=== PATIENT | male | born 1940 | race Caucasian/White ===

== ENCOUNTER 2017-04-23 12:43 | Emergency (ER) | payer MEDICARE, OTHER ==
--- NOTE | 2017-04-23 12:46 | EDM.PDOC ---
ED HPI GENERAL MEDICAL PROBLEM - General Chief Complaint: Chest Pain Stated Complaint: difficulty breathing. Time Seen by Provider: 04/23/17 12:45 Source of Information: Reports: Patient, Family (. ) History Limitations: Reports: No Limitations - History of Present Illness INITIAL COMMENTS - FREE TEXT/NARRATIVE: 76-year-old male attends the ED with his . He reports that he awoke around 0300 hrs. this morning from the easy chair where he sleeps more short of breath with a heaviness in his central chest. He does not wear CPAP machine or oxygen at night. He sleeps in the easy chair because of his severe bad back. He has known coronary disease having had 5 bypasses performed in 2004 or 2005. This was because he arrested on the operating room table prior to the start of her back surgery procedure. He was resuscitated and subsequent angiogram revealed extensive coronary disease and he ended up having open heart surgery instead. Subsequently he has had L-spine surgery by Dr. Shin. Patient states he felt his heart pounding hard in his chest at that time as well and it did not improve until after he took his morning medications about 7:30 this morning. Since then time he is developed fever with sweats and then chills to the point that his teeth were chattering. He has no sore throat he has no headache he has no cough or sputum production. [place] any genitourinary complaints or abdominal pain. No open sores anywhere on his skin that he is aware of. He is not diabetic. On evaluation here he is afebrile. Still remains mildly short of breath especially on minimal exertion. Onset: Today Onset Date: 04/23/17 Onset Time: 03:00 Duration: Hour(s): ( [place] sort racing for a good couple hours this morning.), Intermittent Location: Reports: Chest ( Central chest.) Quality: Reports: Pressure ( Did have a heaviness pressure central chest for a period of time and is now gone.) Severity: Moderate Improves with: Reports: Medication ( Improved after taking his normal morning medications of between 7:30 and 8:30 this morning.) Worsens with: Reports: Movement Context: Reports: Other ( Awoke from sleep in the easy chair around 0300 hrs.). Denies: Activity, Exercise, Lifting, Sick Contact, Trauma Associated Symptoms: Reports: Chest Pain, Diaphoresis ( palpitations), Fever/ Chills, Shortness of Breath, Other. Denies: Cough ( Chest heaviness), cough w sputum, Malaise Treatments FORENSIC SPECIALIST: Reports: Other (see below) ( only taken his normal medication so far today.) Lower Back Pain Score (Numeric/FACES): 7 - Related Data Allergies Allergy/AdvReac Type Severity Reaction Status Date / Time iodine Allergy Rash Verified 04/23/17 13:02 oxycodone HCl [From Percocet] Allergy Vomiting Verified 04/23/17 13:02 levoquin Allergy Diarrhea Uncoded 04/23/17 13:02 Home Meds: Home Meds Aspirin 325 mg PO DAILY 04/23/17 [History] Cholecalciferol (Vitamin D3) [Vitamin D3] 1 tab PO DAILY 04/23/17 [History] Escitalopram [Lexapro] 10 g PO BEDTIME 04/23/17 [History] Fenofibrate Nanocrystallized [Fenofibrate] 145 mg PO DAILY 04/23/17 [History] Furosemide [Lasix] 40 mg PO Q48H 04/23/17 [History] Levothyroxine 112 mcg PO DAILY 04/23/17 [History] Metoprolol Tartrate [Lopressor] 25 g PO BID 04/23/17 [History] Pantoprazole Sodium [Protonix] 40 mg PO DAILY 04/23/17 [History] Pregabalin [Lyrica] 150 mg PO BID 04/23/17 [History] Tamsulosin [Flomax] 0.4 mg PO BEDTIME 04/23/17 [History] Ubidecarenone [Co Q-10] 1 tab PO DAILY 04/23/17 [History] Past Medical History HEENT History: Reports: Impaired Vision Cardiovascular History: Reports: Bypass (Had 5 bypasses performed in 2004 or 2005 after cardiac arrest on operating room table in preparation for low back surgery at [facility] CAD, High Cholesterol, Hypertension Other Cardiovascular History: 5 vessels- 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 Gastrointestinal History: Reports: Chronic Diarrhea, GERD, Hemorrhoids Genitourinary History: Reports: Renal Calculus, Other (See Below) Other Genitourinary History: pt goes to nephology for poor kidney status Musculoskeletal History: Reports: Back Pain, Chronic Neurological History: Reports: None Psychiatric History: Reports: Depression - Past Surgical History Musculoskeletal Surgical History: Reports: Other (See Below) Social & Family History - Tobacco Use Smoking Status *Q: Never Smoker - Recreational Drug Use Recreational Drug Use: No - Living Situation & Occupation Living situation: Reports: ( Self-employed [employer].) Occupation: Employed ED ROS GENERAL - Review of Systems Review Of Systems: See Below Constitutional: Reports: Fever, Chills, Malaise, Weakness, Fatigue ( All starting to this morning.), Diaphoresis, Decreased Appetite HEENT: Reports: No Symptoms Respiratory: Reports: Shortness of Breath. Denies: Wheezing, Pleuritic Chest Pain, Cough, Sputum, Hemoptysis Cardiovascular: Reports: Chest Pain, Blood Pressure Problem, Dyspnea on Exertion ( always has a little bit of fluid in his lower extremities), Edema, Palpitations ( central chest heaviness earlier this morning it is now gone felt his heart was racing and beating very fast in his chest this morning.). Denies : Claudication, Lightheadedness, Orthopnea ( Usually runs a bit on the high side ) Endocrine: Reports: Fatigue GI/Abdominal: Reports: No Symptoms : Reports: Frequency, Other ( Nocturia usually nyway.) Musculoskeletal: Reports: Shoulder Pain ( Said previous rotator cuff repair on his left side.), Back Pain ( Chronic severe thoracic and lumbar back pain. Multiple surgeries on his back.), Joint Pain ( Arthritis knees and hips.) Skin: Reports: No Symptoms Neurological: Reports: No Symptoms Psychiatric: Reports: No Symptoms Hematologic/Lymphatic: Reports: No Symptoms Immunologic: Reports: No Symptoms ED EXAM, NEURO - Physical Exam Exam: See Below Exam Limited By: No Limitations General Appearance: Alert, WD/WN, Other ( In obvious pain when he tries to sit up in his back.) Eye Exam: Bilateral Eye: Normal Inspection Ears: Normal TMs Throat/Mouth: Normal Inspection, Normal Lips, Normal Oropharynx Head Exam: Atraumatic, Normocephalic, Other ( He has a very sore spot on the occipital vertex of his scalp but I could not palpate any deformities or masses. ) Neck: Limited Range of Motion ( Crepitus with lateral rotation.), Tender Lateral ( Bilaterally at). No: Lymphadenopathy (L) ( throughout the cervical spine.), Lymphadenopathy (R) Respiratory/Chest: No Respiratory Distress, Lungs Clear, Normal Breath Sounds, No Accessory Muscle Use, Chest Non-Tender. No: Crackles, Rales, Rhonchi Cardiovascular: Normal Peripheral Pulses, No JVD, No Rub, Irregularly Irregular ( There are multifocal PVCs.), Other ( Well-healed midline sternotomy incision.) GI/Abdominal: Normal Bowel Sounds, Soft, Non-Tender, No Organomegaly, Other ( Abdominal girth limits ability to palpate solid organs.) Neurological: Alert, Normal Mood/Affect, Normal Dorsiflexion, CN II-XII Intact, Oriented x 3, Difficulty Walking ( Due to his back pain.). No: Normal Gait Back Exam: Decreased Range of Motion, Vertebral Tenderness ( scars from previous surgeries. Particularly throughout the lumbar spine at the lumbosacral junction as well.), Other ( Multiple well-healed midlines) Extremities: Pedal Edema ( 1+ pitting edema both lower extremities.) Psychiatric: Normal Affect, Normal Mood Skin Exam: Warm, Dry, Intact, Normal Color, No Rash EKG INTERPRETATION EKG Date: 04/23/17 Time: 12:55 Rhythm: NSR Rate (Beats/Min): 63 [place]: Normal P-Wave: Present QRS: Other (Multiple multifocal PVCs) ST-T: Other (T-wave flattening in several leads nonspecific. T wave inversion 1 and aVL again nonspecific) QT: Prolonged Course - Vital Signs Last Recorded V/S: Last Vital Signs Temp 36.1 C 04/23/17 12:52 Pulse 57 L 04/23/17 12:52 Resp 16 04/23/17 12:52 BP 148/78 H 04/23/17 12:52 Pulse Ox 95 04/23/17 12:52 - Orders/Labs/Meds Orders: Active Orders 24 hr Category Date Time Status EKG 12 Lead [EKG Documentation Completion] [RC] STAT Care 04/23/17 12:59 Active Peripheral IV Care [RC] . DIRECTED Care 04/23/17 13:31 Active CALCIUM, IONIZED [REF] Stat Lab 04/23/17 15:15 Received CULTURE BLOOD [BC] Stat Lab 04/23/17 13:52 Received CULTURE BLOOD [BC] Stat Lab 04/23/17 14:05 Received URINALYSIS W/MICROSCOPIC [UA W/MICROSCOPIC] [URIN] Stat Lab 04/23/17 13:31 Uncollected Sodium Chloride 0.9% [Saline Flush] Med 04/23/17 13:30 Active 10 ml FLUSH ASDIRECTED PRN Blood Culture x2 Reflex Set [OM.PC] Stat Oth 04/23/17 13:31 Ordered Peripheral IV Insertion Adult [OM.PC] Stat Oth 04/23/17 13:30 Ordered Medication Orders Sodium Chloride (Saline Flush) 10 ml FLUSH ASDIRECTED PRN PRN Reason: Keep Vein Open Last Admin: 04/23/17 13:36 Dose: 10 ml Labs: Laboratory Tests 04/23/17 04/23/17 04/23/17 Range/Units 12:58 12:58 12:58 WBC 6.83 (4.23-9.07) K/mm3 RBC 5.17 (4.63-6.08) M/mm3 Hgb 14.9 (13.7-17.5) gm/L Hct 45.3 (40.1-51.0) % MCV 87.6 (79.0-92.2) fl MCH 28.8 (25.7-32.2) pg MCHC 32.9 (32.2-35.5) g/dl RDW Std Deviation 49.2 H (35.1-43.9) fL Plt Count 201 (163-337) K/mm3 MPV 11.1 (9.4-12.3) fl Neutrophils % (Manual) 55 (40-60) % Band Neutrophils % 0 (0-10) % Lymphocytes % (Manual) 39 (20-40) % Atypical Lymphs % 0 % Monocytes % (Manual) 4 (2-10) % Eosinophils % (Manual) 2 (0.8-7.0) % Basophils % (Manual) 0 L (0.2-1.2) Platelet Estimate Adequate RBC Morph Comment Normal PT 11.4 (8.0-13.0) SECONDS INR 1.04 Sodium 138 (136-145) mEq/L Potassium 4.4 (3.5-5.1) mEq/L Chloride 101 (98-107) mEq/L Carbon Dioxide 31 (21-32) mEq/L Anion Gap 10.4 (5-15) BUN 28 H (7-18) mg/dL Creatinine 1.7 H (0.7-1.3) mg/dL Est Cr Clr Drug Dosing 36.32 mL/min Estimated GFR (MDRD) 39 (>60) mL/min BUN/Creatinine Ratio 16.5 (14-18) Glucose 91 (83-115) mg/dL Calcium 10.5 H (8.5-10.1) mg/dL Magnesium 2.3 (1.8-2.4) mg/dl Total Bilirubin 0.5 (0.2-1.0) mg/dL AST 30 (15-37) U/L ALT 31 (16-63) U/L Alkaline Phosphatase 29 L (46-116) U/L CK-MB (CK-2) 1.8 (0-3.6) ng/ml Troponin I < 0.017 (0.00-0.056) ng/mL C-Reactive Protein < 0.2 (<1.0) mg/dL NT-Pro-B Natriuret Pep 317 (0-450) pg/mL Total Protein 7.7 (6.4-8.2) g/dl Albumin 4.4 (3.4-5.0) g/dl Globulin 3.3 gm/dL Albumin/Globulin Ratio 1.3 (1-2) Meds: Medications Generic Name Dose Route Start Last Admin Trade Name Freq PRN Reason Stop Dose Admin Sodium Chloride 10 ml 04/23/17 13:30 04/23/17 13:36 Saline Flush FLUSH 10 ml ASDIRECTED PRN Administration Keep Vein Open Discontinued Medications Generic Name Dose Route Start Last Admin Trade Name Freq PRN Reason Stop Dose Admin Furosemide 40 mg 04/23/17 13:37 04/23/17 14:04 Lasix IVPUSH 04/23/17 13:38 40 mg NOW ONE Administration - Radiology Interpretation Free Text/Narrative:: 36-year-old male presents to the ED with awakening at 3:00 this morning short of breath. He sits in the easy chair to sleep at night because of [place] such a bad back. He states he was aware that his heart was working harder racing in his chest until he took his morning medicines somewhere between 7:30 and 8:30 this morning. Subtle scoliosis heart rate seems to be back to normal although he has frequent multifocal PVCs on his ECG. [place] rate of rate is sinus at 64 per minute. he still felt a heaviness in his chest "somewhat better than it was. Then later this morning he developed significant chills wrist teeth were chattering and he still feels cold. He also broke out in a sweat suggesting development of a fever. He denies cough or sputum production. Note recent changes in his medications. No dysuria urgency. He has frequency due to BPH and taking Lasix at bedtime.. No skin sores were identified on exam. Benign abdominal exam. Therefore he will have septic workup completed serum magnesium will be checked suspect congestive heart failure although there are no acute rales in his lower lung angulo. He's had bad coronary disease having 5 bypasses performed in 2004 or . Does have dependent edema chronically. We'll have a peripheral IV lock started and given Lasix 40 mg IV. - Re-Assessments/Exams Free Text/Narrative Re-Assessment/Exam: 04/23/17 14:24chest x-ray done portably shows a bulbous heart i.e. mild to moderate cardiomegaly. There is a chronic infiltrate or prominence of pulmonary artery at the right medial heart border. He was noted on previous x-ray as well. There is an elevated right hemidiaphragm as well which is chronic. Visualized lung angulo appear clear. 04/23/17 14:59labs are back and reveal a normal white count at 6.83 with 55% neutrophils and no bands hemoglobin is 14.9 hematocrit is 45.3. Platelets are 201,000. Coags are normal sodium 138 potassium 4.4. Toward 101 bicarbonate 31. B1 was 28 creatinine is 1.7 EGFR is 39 night stage III chronic kidney disease serum calcium was slightly elevated at 10.5 with a albumin fraction of 4.4. And ionized calcium was ordered. It is a reference test BNP was slightly elevated 317 CRP is normal at less than 0.2. 04/23/17 15:29Patient reports to me that Dr. Thomas has given him a calcium shot , not sure what this involved. this may be why his serum calcium is elevated at this time. Patient has had previous goiter surgery and has never had problems with low calcium postoperatively. He is scheduled for bone scan towards the end of April and follow-up with Dr. Thomas his banquet lead. At this time no changes to medications were made. I did suggest that if he develops significant palpitations with a heart rate greater than 120 he is to take in extra dose of metoprolol at that time. Departure - Departure Time of Disposition: 15:09 Disposition: Home, Self-Care 01 Condition: Fair Clinical Impression: Intermittent palpitations - Discharge Information Instructions: Palpitations Referrals: Trinidad Gardner NP [Primary Care Provider] - Forms: ED Department Discharge Additional Instructions: evaluation in the emergency department today in regards to sudden onset of rapid heart rate which I suspect was irregularly irregular at 3:00 this morning associate with development of some pressure in the chest and some shortness of breath. History of previous coronary disease with 5 bypasses in 2004 or 2005. Chest x-ray shows the heart to be mildly enlarged but no fluid within the lower portions of the lungs were is appreciated. Lab work done and revealed the heart is still functioning very well with BNP of 317 which is the measures taken for how well the heart is functioning. The only thing that came back elevated slightly wish her calcium at 10.5 and apparently is utilizing medications to alter your calcium levels. Therefore at this time I would not change any of your medications. If you experience another bout of palpitations I would advise you to take an extra metoprolol tablet at that time. If symptoms continue after an hour and a half then you should return to the emergency department for further evaluation of irregular heartbeat. Otherwise no changes in medications are to be made at this time. - My Orders Last 24 Hours: My Active Orders 04/23/17 12:59 EKG 12 Lead [EKG Documentation Completion] [RC] STAT 04/23/17 13:30 Sodium Chloride 0.9% [Saline Flush] 10 ml FLUSH ASDIRECTED PRN Peripheral IV Insertion Adult [OM.PC] Stat 04/23/17 13:31 Peripheral IV Care [RC] . DIRECTED URINALYSIS W/MICROSCOPIC [UA W/MICROSCOPIC] [URIN] Stat Blood Culture x2 Reflex Set [OM.PC] Stat 04/23/17 13:52 CULTURE BLOOD [BC] Stat 04/23/17 14:05 CULTURE BLOOD [BC] Stat 04/23/17 15:15 CALCIUM, IONIZED [REF] Stat - Assessment/Plan Last 24 Hours: My Active Orders 04/23/17 12:59 EKG 12 Lead [EKG Documentation Completion] [RC] STAT 04/23/17 13:30 Sodium Chloride 0.9% [Saline Flush] 10 ml FLUSH ASDIRECTED PRN Peripheral IV Insertion Adult [OM.PC] Stat 04/23/17 13:31 Peripheral IV Care [RC] . DIRECTED URINALYSIS W/MICROSCOPIC [UA W/MICROSCOPIC] [URIN] Stat Blood Culture x2 Reflex Set [OM.PC] Stat 04/23/17 13:52 CULTURE BLOOD [BC] Stat 04/23/17 14:05 CULTURE BLOOD [BC] Stat 04/23/17 15:15 CALCIUM, IONIZED [REF] Stat
[2017-04-23] MEDS ORDERED: Sodium Chloride 0.9% 10 ML Syringe FLUSH PRN (13:30)
[2017-04-23] MEDS ORDERED: Furosemide 40 MG/4 ML VIAL IVPUSH ONE (13:37)
--- NOTE | 2017-04-23 14:09 | CR ---
Chest: Portable view of the chest was obtained. Comparison: Previous chest x-ray of 11/04/15. Heart size is within normal limits for portable technique. Tortuous thoracic aorta is seen. Previous sternotomy is noted. Lungs are clear. Bony structures are grossly intact. Impression: 1. Incidental findings. Nothing acute is appreciated. Diagnostic code #2
[2017-04-23 16:37] VITALS: BP 102/71
== END 2017-04-23 15:50 | disposition home or self-care (01) ==
LOC: JD.ED 12:43
DX: R00.2 Palpitations (principal); I10 Essential (primary) hypertension; I25.10 Atherosclerotic heart disease of native coronary artery without angina pectoris; E78.00 Pure hypercholesterolemia, unspecified; K21.9 Gastro-esophageal reflux disease without esophagitis; F32.9 Major depressive disorder, single episode, unspecified; Z87.442 Personal history of urinary calculi; Z95.1 Presence of aortocoronary bypass graft; Z79.82 Long term (current) use of aspirin; Z79.899 Other long term (current) drug therapy; Z88.6 Allergy status to analgesic agent; Z88.8 Allergy status to other drugs, medicaments and biological substances
CPT/HCPCS: 36415; 71010; 80053; 81001; 82330; 82553; 83735; 83880; 84484; 85025; 85610; 86140; 87040; 87086; 87088; 87186; 93005; 96374; 99285; J1940; J7050; 99284

== ENCOUNTER 2018-05-11 08:53 | Inpatient (IN) | payer MEDICARE, OTHER ==
[~2018-05-11 08:53] MED LIST: Lactated Ringers 1,000 ML IV SCH; Lidocaine 1%/Sod Bicarbonate in NS 8.4% 1 ML Syringe IDERM PRN; Sodium Chloride 0.9% 10 ML Syringe FLUSH PRN
[2018-05-11] MEDS ORDERED: ceFAZolin 1 GM Vial ONE ×2 (09:12→09:23)
[2018-05-11] MEDS ORDERED: Vancomycin 1 GM SDV ONE (09:12)
[2018-05-11] MEDS ORDERED: Bupivacaine 0.25% 30 ML SDV ONE (09:12)
[2018-05-11] MEDS ORDERED: fentaNYL 100 MCG/2 ML SDV ONE ×2 (09:15→12:52)
[2018-05-11] MEDS ORDERED: Lactated Ringers 2,000 ML ONE (09:16)
[2018-05-11] MEDS ORDERED: Propofol 200 MG/20 ML SDV ONE (09:16)
[2018-05-11] MEDS ORDERED: Ondansetron 4 MG/2 ML SDV ONE (09:16)
[2018-05-11] MEDS ORDERED: Ketamine 500 mg/10 ML MDV ONE (09:17)
[2018-05-11] MEDS ORDERED: Midazolam 1 MG/ML 2 ML SDV ONE (09:17)
[2018-05-11] MEDS ORDERED: Lidocaine 1% 4 ML ONE (09:22)
[2018-05-11] MEDS ORDERED: Lanolin/Mineral Oil/Petrolatum Ophth Oint 3.5 GM Tube ONE (09:33)
[2018-05-11] MEDS ORDERED: HYDROmorphone 0.5 MG/0.5 ML Syringe IVPUSH PRN ×2 (09:48→13:40)
[2018-05-11] MEDS ORDERED: Famotidine 20 MG/2 ML SDV ONE (10:43)
[2018-05-11] MEDS ORDERED: Scopolamine 1.5 MG Transdermal Patch TOP ONE (10:45)
[2018-05-11] MEDS ORDERED: Ropivacaine 0.5% 5 MG/ML 30 ML SDV ONE (10:47)
[2018-05-11] MEDS ORDERED: EPINEPHrine 1 MG/ML SDV ONE (10:48)
[2018-05-11] MEDS ORDERED: EPINEPHrine 0.3 MG, Cefuroxime 750 MG, Ketorolac 30 MG, Sodium Chloride 0.9% 28.7 ML ONE ×4 (11:00)
[2018-05-11] MEDS ORDERED: HYDROmorphone 0.5 MG/0.5 ML Syringe ONE (11:17)
[2018-05-11] MEDS ORDERED: Sodium Chloride 0.9% 100 ML ONE (11:38)
[2018-05-11] MEDS ORDERED: Phenylephrine 1% 10 MG/ML SDV ONE (11:38)
[2018-05-11] MEDS ORDERED: Dexamethasone 4 MG/ML SDV ONE (11:43)
[2018-05-11] MEDS ORDERED: Lidocaine 1% 2 ML ONE (11:56)
[2018-05-11] MEDS ORDERED: ePHEDrine/Normal Saline 25 MG/5 ML Syringe ONE (12:05)
[2018-05-11] MEDS ORDERED: Phenylephrine/Normal Saline 100 MCG/ML 10 ML Syringe ONE (12:05)
[2018-05-11] MEDS ORDERED: Neostigmine Methylsulfate 1 MG/ML 5 ML Syringe ONE (13:20)
--- NOTE | 2018-05-11 13:26 | PCM.SN ---
- Free Text/Narrative Note: Right selective femoral nerve block at the adductor canal for post-procedure pain control under US guidance requested by Dr. Iniguez. Time Out: 1306 Start:1308 End: 1312 Chart reviewed. Consent signed. Questions answered. Appropriate monitors applied. Time out performed. Right mid-shaft femur identified with ultrasound, scanning medially of femur, the femoral artery in the adductor canal visualized , and the femoral nerve located laterally to the artery. The skin was prepped lateral to the ultrasound probe with chlorahexadine times two. The 21ga 4 insulated block needle was inserted under direct ultrasound guidance into the adductor canal. 25mL of 0.5% ropivacaine with 1:200,000 epinephrine was injected circumferentially around the nerve with intermittent negative aspiration noted. Patient tolerated the procedure well. Sterile technique noted along with sterile gloves, mask, and sterile probe cover. See picture on progress note and vital signs on nurses notes. Block completed in OR room as patient had a general anesthesia. Completed prior to wake up. Assisted by Dr. Camryn Diaz CRNA
[2018-05-11] MEDS ORDERED: Nitroglycerin 0.4 MG Tab.SL SL PRN (13:36)
[2018-05-11] MEDS ORDERED: fentaNYL 100 MCG/2 ML SDV IVPUSH PRN (13:40)
[2018-05-11] MEDS ORDERED: diphenhydrAMINE 50 MG/ML SDV IVPUSH PRN (13:40)
[2018-05-11] MEDS ORDERED: Ondansetron 4 MG/2 ML SDV IVPUSH PRN ×2 (13:40→13:43)
--- NOTE | 2018-05-11 13:42 | PCM.POSTAN ---
POST ANESTHESIA ASSESSMENT - MENTAL STATUS Mental Status: Alert, Oriented - VITAL SIGNS Pulse Rate: 75 SaO2: 96 Resp Rate: 22 Blood Pressure: 112/72 Temperature: 37.3 C - RESPIRATORY Respiratory Status: Respiratory Rate WNL, Airway Patent, O2 Saturation Stable, Supplemental Oxygen - CARDIOVASCULAR CV Status: Pulse Rate WNL, Blood Pressure Stable - GASTROINTESTINAL GI Status: No Symptoms - PAIN Pain Score: 0 - POST OP HYDRATION Hydration Status: Adequate & Stable
[2018-05-11] MEDS ORDERED: Bisacodyl 5 MG Tab PO PRN (13:43)
[2018-05-11] MEDS ORDERED: Naloxone 0.4 MG/ML SDV IVPUSH PRN ×2 (13:43→13:57)
[2018-05-11] MEDS ORDERED: Magnesium Hydroxide 400 MG/5 ML Susp 30 ML Cup PO PRN (13:43)
[2018-05-11] MEDS ORDERED: Sennosides 8.6 MG Tab PO PRN (13:43)
[2018-05-11] MEDS ORDERED: Denosumab 60 MG/1 ML Syringe SCH (13:45)
--- NOTE | 2018-05-11 13:51 | PCM.PREANE ---
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 ) Other: Reports: Thyroid Problems, Depression - Physical Assessment NPO Status Date: 05/10/18 NPO Status Time: 19:00 Pulse: 75 O2 Sat by Pulse Oximetry: 96 Respiratory Rate: 22 Blood Pressure: 112/72 Temperature: 37.3 C Vital Signs: Last Vital Signs Temp 37.3 C 05/11/18 13:42 Pulse 75 05/11/18 13:42 Resp 22 H 05/11/18 13:42 BP 112/72 05/11/18 13:42 Pulse Ox 96 05/11/18 13:42 Height: 1.73 m Weight: 102.058 kg ASA Class: 3 Mental Status: Alert & Oriented x3 Airway Class: Mallampati = 2 Dentition: Reports: Normal Dentition Thyro-Mental Finger Breadths: 3 Mouth Opening Finger Breadths: 3 ROM/Head Extension: Full Lungs: Clear to Auscultation, Normal Respiratory Effort Cardiovascular: Regular Rate, Regular Rhythm - Lab Values: Laboratory Last Values MRSA (PCR) Negative 04/24/18 12:07 - Allergies Allergies/Adverse Reactions: Allergies Allergy/AdvReac Type Severity Reaction Status Date / Time iodine Allergy Rash Verified 05/08/18 10:38 morphine Allergy Hives Verified 05/08/18 10:38 ciprofloxacin [From Cipro] AdvReac Nausea and Verified 05/11/18 07:04 Vomiting levofloxacin AdvReac Diarrhea Verified 05/08/18 10:38 oxycodone HCl [From Percocet] AdvReac Vomiting Verified 05/08/18 10:38 - Anesthesia Plan Beta Ila: Metoprolol Med Last Dose Date: 05/11/18 Med Last Dose Time: 06:00 - Acknowledgements Anesthesia Type Planned: General Anesthesia Pt an Appropriate Candidate for the Planned Anesthesia: Yes Alternatives and Risks of Anesthesia Discussed w Pt/Guardian: Yes Pt/Guardian Understands and Agrees with Anesthesia Plan: Yes PreAnesthesia Questionnaire HEENT History: Reports: Cataract, Impaired Vision Cardiovascular History: Reports: Bypass, CAD, High Cholesterol, Hypertension, [place] Other Cardiovascular History: 5 vessels- 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 Respiratory History: Reports: None Gastrointestinal History: Reports: Chronic Diarrhea, Diverticulosis, Gastritis, GERD, Hemorrhoids, Hiatal Hernia, Other (See Below) Other Gastrointestinal History: barretts, gastritis Genitourinary History: Reports: Renal Calculus, Other (See Below) Other Genitourinary History: UTI, prostatitis, renal calculus, hematuria, CKD III, urinary retention, acute kidney injury 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 Musculoskeletal History: Reports: Back Pain, Chronic, Gout, Osteoarthritis Neurological History: Reports: None, Migraines Psychiatric History: Reports: Depression Endocrine/Metabolic History: Reports: Hypothyroidism, Obesity/BMI 30+, Osteopenia, Vitamin D Deficiency Hematologic History: Reports: None Immunologic History: Reports: None Oncologic (Cancer) History: Reports: None Dermatologic History: Reports: Other (See Below) Other Dermatologic History: rash, lipoma - Past Surgical History Head Surgeries/Procedures: Reports: None HEENT Surgical History: Reports: Cataract Surgery, Tonsillectomy Cardiovascular Surgical History: Reports: Coronary Artery Bypass Respiratory Surgical History: Reports: None GI Surgical History: Reports: Colonoscopy, EGD, Other (See Below) Other GI Surgeries/Procedures: lysis of adhesions Female Surgical History: Reports: Cystoscopy Male Surgical History: Reports: None Endocrine Surgical History: Reports: Thyroidectomy Neurological Surgical History: Reports: Spinal Fusion Other Neurological Surgeries/Procedures: [id number] fusion Musculoskeletal Surgical History: Reports: Shoulder Surgery, Other (See Below) Other Musculoskeletal Surgeries/Procedures:: back surgery in 2005 Oncologic Surgical History: Reports: None Dermatological Surgical History: Reports: None - SUBSTANCE USE Smoking Status *Q: Former Smoker Recreational Drug Use History: No - HOME MEDS Home Medications: Home Meds Aspirin 325 mg PO DAILY 04/23/17 [History] Escitalopram [Lexapro] 10 g PO BEDTIME 04/23/17 [History] Fenofibrate Nanocrystallized [Fenofibrate] 145 mg PO DAILY 04/23/17 [History] Furosemide [Lasix] 40 mg PO Q48H 04/23/17 [History] Metoprolol Tartrate [Lopressor] 25 mg PO BID 04/23/17 [History] Pantoprazole Sodium [Protonix] 40 mg PO DAILY 04/23/17 [History] Pregabalin [Lyrica] 150 mg PO BID 04/23/17 [History] Tamsulosin [Flomax] 0.4 mg PO BEDTIME 04/23/17 [History] Ubidecarenone [Co Q-10] 1 tab PO DAILY 04/23/17 [History] Cholecalciferol (Vitamin D3) [Vitamin D3] 4,000 units PO DAILY 05/08/18 [History ] Denosumab [Prolia] 60 mg SQ ASDIRECTED 05/08/18 [History] Folic Acid 1 mg PO DAILY 05/08/18 [History] Levothyroxine Sodium [Synthroid] 112 mcg PO DAILY 05/08/18 [History] Nitroglycerin [Nitrostat] 0.4 mg PO Q5M PRN 05/08/18 [History] Simvastatin [Zocor] 40 mg PO DAILY 05/08/18 [History] Amoxicillin 250 mg PO DAILY 05/11/18 [History] Finasteride [Proscar] 5 mg PO DAILY 05/11/18 [History] Multivitamin/Iron/Folic Acid [Centrum Adults Tablet] 1 tab PO DAILY 05/11/18 [ History] - CURRENT (IN HOUSE) MEDS Current Meds: Current Medications Hydrocodone Bitart/Acetaminophen ([place] 325-5 Mg) 1 - 2 tab PO Q4H PRN PRN Reason: Pain Amoxicillin (Amoxil) 250 mg PO DAILY [facility] Aspirin (Ecotrin) 325 mg PO BID [facility] Diphenhydramine HCl (Benadryl) 25 mg IVPUSH Q6H PRN PRN Reason: Pruritis Docusate Sodium (Colace) 100 mg PO BID [facility] Fenofibrate (Tricor) 145 mg PO DAILY [facility] Fentanyl (Sublimaze) 50 mcg IVPUSH Q5M PRN PRN Reason: Pain Stop: 05/11/18 23:00 Finasteride (Proscar) 5 mg PO DAILY [facility] Folic Acid (Folic Acid) 1 mg PO DAILY [facility] Furosemide (Lasix) 40 mg PO Q48H [facility] Hydromorphone HCl (Dilaudid) 0.2 mg IVPUSH Q2H PRN PRN Reason: Pain Hydromorphone HCl (Dilaudid) 0.5 mg IV ASDIRECTED PRN PRN Reason: Severe Pain Lactated Ringer's (Ringers, Lactated) 1,000 mls @ 125 mls/hr IV ASDIRECTED [facility] Stop: 05/11/18 23:00 Last Admin: 05/11/18 09:40 Dose: 125 mls/hr Cefazolin Sodium/Dextrose 2 gm (/ Premix) 50 mls @ 100 mls/hr IV Q8H [facility] Stop: 05/12/18 09:59 Levothyroxine Sodium (Levothyroxine) 112 mcg PO DAILY [facility] Lidocaine/Sodium Bicarbonate (Buffered Lidocaine 1% In Ns 8.4%) 0.25 ml IDERM ONETIME PRN PRN Reason: Prior to IV Start Stop: 05/11/18 18:00 Last Admin: 05/11/18 09:40 Dose: 0.25 ml Metoprolol Tartrate (Lopressor) 25 mg PO BID [facility] Miscellaneous Information (Remove Patch) 0 ea TRDERM ONETIME ONE Stop: 05/14/18 10:46 Nitroglycerin (Nitrostat) 0.4 mg SL Q5M PRN PRN Reason: Chest Pain Non-Formulary Medication (Cholecalciferol (Vitamin D3) [Vitamin D3]) 4,000 units PO DAILY [facility] Non-Formulary Medication (Escitalopram) 10 g PO BEDTIME [facility] Non-Formulary Medication (Multivitamin/Iron/Folic Acid [Centrum Adults Tablet]) 1 tab PO DAILY [facility] Non-Formulary Medication (Pregabalin) 150 mg PO BID [facility] Non-Formulary Medication (Ubidecarenone [Co Q-10]) 1 tab PO DAILY [facility] Ondansetron HCl (Zofran) 4 mg IVPUSH ONETIME PRN PRN Reason: Nausea/Vomiting Pantoprazole Sodium (Protonix) 40 mg PO DAILY [facility] Simvastatin (Zocor) 40 mg PO DAILY [facility] Sodium Chloride (Saline Flush) 10 ml FLUSH ASDIRECTED PRN PRN Reason: Keep Vein Open Stop: 05/11/18 18:00 Tamsulosin HCl (Flomax) 0.4 mg PO BEDTIME [facility] Discontinued Medications Artificial Tears (Artificial Tears Ointment) Confirm Administered Dose 3.5 gm .ROUTE .STK-MED ONE Stop: 05/11/18 09:34 Bupivacaine HCl (Marcaine 0.25%) Confirm Administered Dose 30 ml .ROUTE .STK- MED ONE Stop: 05/11/18 09:13 Cefazolin Sodium (Ancef) Confirm Administered Dose 2 gm .ROUTE .STK-MED ONE Stop: 05/11/18 09:13 Cefazolin Sodium (Ancef) Confirm Administered Dose 2 gm .ROUTE .STK-MED ONE Stop: 05/11/18 09:24 Epinephrine HCl 0.3 mg/Cefuroxime Sodium 750 mg/Ketorolac Tromethamine 30 mg/ Sodium Chloride 28.7 ml 0 mg .XX ONETIME ONE Stop: 05/11/18 11:01 Denosumab (Prolia) 60 mg .XX ASDIRECTED [facility] Dexamethasone (Dexamethasone) Confirm Administered Dose 8 mg .ROUTE .STK-MED ONE Stop: 05/11/18 11:44 Ephedrine Sulfate (Ephedrine In Ns) Confirm Administered Dose 25 mg .ROUTE .STK- MED ONE Stop: 05/11/18 12:06 Epinephrine HCl (Adrenalin) Confirm Administered Dose 1 mg .ROUTE .STK-MED ONE Stop: 05/11/18 10:49 Famotidine (Pepcid) Confirm Administered Dose 20 mg .ROUTE .ST-MED ONE Stop: 05/11/18 10:44 Fentanyl (Sublimaze) Confirm Administered Dose 100 mcg .ROUTE .STK-MED ONE Stop: 05/11/18 09:16 Fentanyl (Sublimaze) Confirm Administered Dose 100 mcg .ROUTE .STK-MED ONE Stop: 05/11/18 12:53 Glycopyrrolate () Confirm Administered Dose 1 mg .ROUTE .STK-MED ONE Stop: 05/11/18 13:21 Hydromorphone HCl (Dilaudid) Confirm Administered Dose 0.5 mg .ROUTE .STK-MED ONE Stop: 05/11/18 11:18 Lactated Ringer's (Ringers, Lactated) Confirm Administered Dose 2,000 mls @ as directed .ROUTE .STK-MED ONE Stop: 05/11/18 09:17 Lidocaine HCl (Xylocaine-Mpf 1%) Confirm Administered Dose 4 mls @ as directed .ROUTE .STK-MED ONE Stop: 05/11/18 09:23 Sodium Chloride (Normal Saline) Confirm Administered Dose 100 mls @ as directed .ROUTE .STK-MED ONE Stop: 05/11/18 11:39 Lidocaine HCl (Xylocaine-Mpf 1%) Confirm Administered Dose 2 mls @ as directed .ROUTE .STK-MED ONE Stop: 05/11/18 11:57 Ketamine HCl (Ketalar) Confirm Administered Dose 500 mg .ROUTE .STK-MED ONE Stop: 05/11/18 09:18 Midazolam HCl (Versed 1 Mg/Ml) Confirm Administered Dose 4 mg .ROUTE .STK-MED ONE Stop: 05/11/18 09:18 Neostigmine Methylsulfate (Neostigmine) Confirm Administered Dose 5 mg .ROUTE .STK-MED ONE Stop: 05/11/18 13:21 Ondansetron HCl (Zofran) Confirm Administered Dose 4 mg .ROUTE .STK-MED ONE Stop: 05/11/18 09:17 Phenylephrine HCl (Reese-Synephrine) Confirm Administered Dose 10 mg .ROUTE .STK- MED ONE Stop: 05/11/18 11:39 Phenylephrine HCl (Phenylephrine In Ns 100 Mcg/Ml) Confirm Administered Dose 1 mg .ROUTE .STK-MED ONE Stop: 05/11/18 12:06 Propofol (Diprivan 20 Ml) Confirm Administered Dose 400 mg .ROUTE .STK-MED ONE Stop: 05/11/18 09:17 Ropivacaine (Naropin 0.5%) Confirm Administered Dose 30 ml .ROUTE .STK-MED ONE Stop: 05/11/18 10:48 Scopolamine (Transderm-Scop) 1.5 mg TOP ONETIME ONE Stop: 05/11/18 10:46 Last Admin: 05/11/18 10:43 Dose: 1.5 mg Tranexamic Acid (Cyklokapron) Confirm Administered Dose 1,000 mg .ROUTE .STK- MED ONE Stop: 05/11/18 09:13 Tranexamic Acid (Cyklokapron) Confirm Administered Dose 1,000 mg .ROUTE .STK- MED ONE Stop: 05/11/18 12:45 Vancomycin HCl (Vancomycin) Confirm Administered Dose 1 gm .ROUTE .STK-MED ONE Stop: 05/11/18 09:13
[2018-05-11] MEDS ORDERED: Naloxone 0.4 MG/ML SDV ONE (13:56)
[2018-05-11] MEDS ORDERED: Metoprolol Tartrate 5 MG/5 ML SDV ONE ×2 (14:05→14:06)
--- NOTE | 2018-05-11 14:33 | CR ---
Right knee: AP and lateral views of the left knee were obtained. Comparison: No previous knee exam. Knee prosthesis is noted. Components are aligned. Soft tissue air is noted from the surgical procedure. Underlying bony structures are intact. Minimal vascular calcification is seen. Impression: 1. Satisfactory radiographic appearance of recently placed right knee prosthesis. Diagnostic code #2
[2018-05-11] MEDS: Sodium Chloride 0.9% 1,000 ML IV SCH (14:50)
--- NOTE | 2018-05-11 16:13 | PCM.SN ---
- Free Text/Narrative Note: In to see Neo. Overall he is doing well s/p R TKA day 0. He currently states his pain is controlled. Denies F/C, Headache, N/V/D, Chest pain, SOB, Cough. Will start working with Physical Therapy in the AM. Using Incentive Spirometry. [place] catheter. 3L NC for dinner, will be put back on 5L CPAP afterward. DVT prophylaxis. Physical Exam unremarkable- PERRLA, Lungs Clear, Normal Heart sounds, Neurovascularly intact in extremities with 3+ pulses. No other concerns from nursing.
[2018-05-11] MEDS: ceFAZolin 2 GM in Premix Bag 1 BAG IV SCH (17:36)
[2018-05-11] MEDS: Acetaminophen/HYDROcodone 325-5 MG Tab PO PRN ×2 (17:47→22:09)
[2018-05-11] MEDS: Furosemide 40 MG Tab PO SCH (18:12)
[2018-05-11] MEDS: Citalopram 20 MG Tab PO SCH (20:04)
[2018-05-11] MEDS: Metoprolol Tartrate 25 MG Tab PO SCH (20:04)
[2018-05-11] MEDS: Tamsulosin 0.4 MG Cap.ER PO SCH (20:04)
[2018-05-11] MEDS: Docusate Sodium 100 MG Cap PO SCH (20:04)
[2018-05-11] MEDS: Pregabalin 75 MG Cap PO SCH (20:04)
[2018-05-12] MEDS: ceFAZolin 2 GM in Premix Bag 1 BAG IV SCH ×2 (01:04→09:43)
[2018-05-12] MEDS: Acetaminophen/HYDROcodone 325-5 MG Tab PO PRN ×4 (05:25→23:48)
--- NOTE | 2018-05-12 06:34 | PCM.CONSN ---
- General Info Date of Service: 05/12/18 Admission Dx/Problem (Free Text): Osteoarthritis of the knee Subjective Update: In to see Neo. He is lying in bed and doing well. He reports pain is controlled. No patient concerns. He has been working with therapies and ambulating. He has urinated. Creatinine is slightly elevated compared to baseline so will give 250ml bolus now. His oxygen saturations have been fluctuating. With 1L o2 he maintains saturations, however when attempting to wean he drops into the low 80s. He does not have a diagnosed underling condition although it is highly suspected he has EDDI. He has also been getting pain meds. Will keep overnight for pulse ox and continued respiratory status monitoring. Plan for discharge tomorrow. Plan has been discussed with Camila Romero PA-C from Dr. Iniguez's office. Functional Status: Reports: Pain Controlled, Tolerating Diet, Ambulating, Urinating, Incentive Spirometry. Denies: New Symptoms - Review of Systems General: Reports: No Symptoms. Denies: Weakness, Fatigue, Malaise HEENT: Reports: No Symptoms. Denies: Sore Throat Pulmonary: Reports: No Symptoms. Denies: Shortness of Breath, Cough, Sputum, Wheezing Cardiovascular: Reports: No Symptoms. Denies: Chest Pain, Palpitations, Lightheadedness Gastrointestinal: Reports: No Symptoms. Denies: Abdominal Pain, Constipation, Diarrhea, Nausea, Vomiting Genitourinary: Reports: No Symptoms. Denies: Frequency, Burning, Pain Musculoskeletal: Reports: Leg Pain Skin: Reports: No Symptoms Neurological: Reports: No Symptoms. Denies: Confusion Psychiatric: Reports: No Symptoms - Patient Data Vitals - Most Recent: Last Vital Signs Temp 98.5 F 05/12/18 04:00 Pulse 57 L 05/12/18 04:00 Resp 12 05/12/18 04:00 BP 116/67 05/12/18 04:00 Pulse Ox 93 L 05/12/18 04:00 Weight - Most Recent: 238 lb I&O - Last 24 Hours: Intake & Output 05/11/18 05/11/18 05/12/18 14:59 22:59 06:59 Intake Total 1080 214 Output Total 500 545 850 Balance -500 655 -576 Lab Results Last 24 Hours: Laboratory Results - last 24 hr 05/12/18 Range/Units 05:30 WBC 11.92 H (4.23-9.07) K/mm3 RBC 4.26 L (4.63-6.08) M/mm3 Hgb 12.4 L (13.7-17.5) gm/L Hct 38.1 L (40.1-51.0) % MCV 89.4 (79.0-92.2) fl MCH 29.1 (25.7-32.2) pg MCHC 32.5 (32.2-35.5) g/dl RDW Std Deviation 49.0 H (35.1-43.9) fL Plt Count 162 L (163-337) K/mm3 MPV 10.5 (9.4-12.3) fl Med Orders - Current: Current Medications Hydrocodone Bitart/Acetaminophen (Mchenry 325-5 Mg) 1 - 2 tab PO Q4H PRN PRN Reason: Pain Last Admin: 05/12/18 05:25 Dose: 2 tab Amoxicillin (Amoxil) 250 mg PO DAILY [facility] Aspirin (Ecotrin) 325 mg PO BID [facility] Bisacodyl (Dulcolax) 5 mg PO DAILY PRN PRN Reason: Constipation Cholecalciferol (Vitamin D3) 4,000 units PO DAILY [facility] Citalopram Hydrobromide (Celexa) 20 mg PO BEDTIME [facility] Last Admin: 05/11/18 20:04 Dose: 20 mg Diphenhydramine HCl (Benadryl) 25 mg IVPUSH Q6H PRN PRN Reason: Pruritis Docusate Sodium (Colace) 100 mg PO BID [facility] Last Admin: 05/11/18 20:04 Dose: 100 mg Fenofibrate (Tricor) 145 mg PO DAILY [facility] Finasteride (Proscar) 5 mg PO DAILY [facility] Folic Acid (Folic Acid) 1 mg PO DAILY [facility] Furosemide (Lasix) 40 mg PO Q48H [facility] Last Admin: 05/11/18 18:12 Dose: 40 mg Hydromorphone HCl (Dilaudid) 0.2 mg IVPUSH Q2H PRN PRN Reason: Pain Cefazolin Sodium/Dextrose 2 gm (/ Premix) 50 mls @ 100 mls/hr IV Q8H [facility] Stop: 05/12/18 09:59 Last Admin: 05/12/18 01:04 Dose: 100 mls/hr Sodium Chloride (Normal Saline) 1,000 mls @ 25 mls/hr IV ASDIRECTED [facility] Stop: 05/15/18 14:41 Last Admin: 05/11/18 14:50 Dose: 25 mls/hr Levothyroxine Sodium (Levothyroxine) 112 mcg PO DAILY [facility] Metoprolol Tartrate (Lopressor) 25 mg PO BID [facility] Last Admin: 05/11/18 20:04 Dose: 25 mg Miscellaneous Information (Remove Patch) 0 ea TRDERM ONETIME ONE Stop: 05/14/18 10:46 Multivitamins (Thera) 1 each PO DAILY [facility] Naloxone HCl (Narcan) 0.1 mg IVPUSH Q5M PRN PRN Reason: Oversedation Naloxone HCl (Narcan) 0.4 mg IVPUSH ONETIME PRN PRN Reason: Respiratory Depression Last Admin: 05/11/18 13:57 Dose: 0.4 mg Nitroglycerin (Nitrostat) 0.4 mg SL Q5M PRN PRN Reason: Chest Pain Ondansetron HCl (Zofran) 4 mg IVPUSH Q6H PRN PRN Reason: Nausea/Vomiting Pantoprazole Sodium (Protonix) 40 mg PO DAILY [facility] Pregabalin (Lyrica) 150 mg PO BID [facility] Last Admin: 05/11/18 20:04 Dose: 150 mg Senna (Senna) 8.6 mg PO BID PRN PRN Reason: Constipation Simvastatin (Zocor) 40 mg PO BEDTIME [facility] Tamsulosin HCl (Flomax) 0.4 mg PO BEDTIME [facility] Last Admin: 05/11/18 20:04 Dose: 0.4 mg Discontinued Medications Artificial Tears (Artificial Tears Ointment) Confirm Administered Dose 3.5 gm .ROUTE .STK-MED ONE Stop: 05/11/18 09:34 Bupivacaine HCl (Marcaine 0.25%) Confirm Administered Dose 30 ml .ROUTE .STK- MED ONE Stop: 05/11/18 09:13 Last Admin: 05/11/18 12:35 Dose: 20 ml Cefazolin Sodium (Ancef) Confirm Administered Dose 2 gm .ROUTE .STK-MED ONE Stop: 05/11/18 09:13 Last Admin: 05/11/18 12:30 Dose: 2 gm Cefazolin Sodium (Ancef) Confirm Administered Dose 2 gm .ROUTE .STK-MED ONE Stop: 05/11/18 09:24 Epinephrine HCl 0.3 mg/Cefuroxime Sodium 750 mg/Ketorolac Tromethamine 30 mg/ Sodium Chloride 28.7 ml 0 mg .XX ONETIME ONE Stop: 05/11/18 11:01 Last Admin: 05/11/18 18:38 Dose: Not Given Denosumab (Prolia) 60 mg .XX ASDIRECTED [facility] Dexamethasone (Dexamethasone) Confirm Administered Dose 8 mg .ROUTE .STK-MED ONE Stop: 05/11/18 11:44 Ephedrine Sulfate (Ephedrine In Ns) Confirm Administered Dose 25 mg .ROUTE .STK- MED ONE Stop: 05/11/18 12:06 Epinephrine HCl (Adrenalin) Confirm Administered Dose 1 mg .ROUTE .STK-MED ONE Stop: 05/11/18 10:49 Famotidine (Pepcid) Confirm Administered Dose 20 mg .ROUTE .STK-MED ONE Stop: 05/11/18 10:44 Fentanyl (Sublimaze) Confirm Administered Dose 100 mcg .ROUTE .STK-MED ONE Stop: 05/11/18 09:16 Fentanyl (Sublimaze) Confirm Administered Dose 100 mcg .ROUTE .STK-MED ONE Stop: 05/11/18 12:53 Fentanyl (Sublimaze) 50 mcg IVPUSH Q5M PRN PRN Reason: Pain Stop: 05/11/18 23:00 Last Admin: 05/11/18 13:55 Dose: 50 mcg Glycopyrrolate () Confirm Administered Dose 1 mg .ROUTE .STK-MED ONE Stop: 05/11/18 13:21 Hydromorphone HCl (Dilaudid) Confirm Administered Dose 0.5 mg .ROUTE .STK-MED ONE Stop: 05/11/18 11:18 Hydromorphone HCl (Dilaudid) 0.5 mg IVPUSH ASDIRECTED PRN PRN Reason: Severe Pain Stop: 05/11/18 23:00 Lactated Ringer's (Ringers, Lactated) 1,000 mls @ 125 mls/hr IV ASDIRECTED [facility] Stop: 05/11/18 23:00 Last Admin: 05/11/18 09:40 Dose: 125 mls/hr Lactated Ringer's (Ringers, Lactated) Confirm Administered Dose 2,000 mls @ as directed .ROUTE .STK-MED ONE Stop: 05/11/18 09:17 Lidocaine HCl (Xylocaine-Mpf 1%) Confirm Administered Dose 4 mls @ as directed .ROUTE .STK-MED ONE Stop: 05/11/18 09:23 Sodium Chloride (Normal Saline) Confirm Administered Dose 100 mls @ as directed .ROUTE .STK-MED ONE Stop: 05/11/18 11:39 Lidocaine HCl (Xylocaine-Mpf 1%) Confirm Administered Dose 2 mls @ as directed .ROUTE .STK-MED ONE Stop: 05/11/18 11:57 Acetaminophen (Ofirmev) 100 mls @ 400 mls/hr IV ONETIME ONE Stop: 05/11/18 14:27 Last Admin: 05/11/18 14:29 Dose: 400 mls/hr Ketamine HCl (Ketalar) Confirm Administered Dose 500 mg .ROUTE .STK-MED ONE Stop: 05/11/18 09:18 Lidocaine/Sodium Bicarbonate (Buffered Lidocaine 1% In Ns 8.4%) 0.25 ml IDERM ONETIME PRN PRN Reason: Prior to IV Start Stop: 05/11/18 18:00 Last Admin: 05/11/18 09:40 Dose: 0.25 ml Magnesium Hydroxide (Milk Of Magnesia) 30 ml PO BID PRN PRN Reason: Constipation Metoprolol Tartrate (Lopressor) Confirm Administered Dose 5 mg .ROUTE .STK-MED ONE Stop: 05/11/18 14:06 Metoprolol Tartrate (Lopressor) Confirm Administered Dose 5 mg .ROUTE .STK-MED ONE Stop: 05/11/18 14:07 Midazolam HCl (Versed 1 Mg/Ml) Confirm Administered Dose 4 mg .ROUTE .STK-MED ONE Stop: 05/11/18 09:18 Naloxone HCl (Narcan) Confirm Administered Dose 0.4 mg .ROUTE .STK-MED ONE Stop: 05/11/18 13:57 Last Admin: 05/11/18 18:37 Dose: Not Given Neostigmine Methylsulfate (Neostigmine) Confirm Administered Dose 5 mg .ROUTE .STK-MED ONE Stop: 05/11/18 13:21 Non-Formulary Medication (Ubidecarenone [Co Q-10]) 1 tab PO DAILY [facility] Ondansetron HCl (Zofran) Confirm Administered Dose 4 mg .ROUTE .STK-MED ONE Stop: 05/11/18 09:17 Ondansetron HCl (Zofran) 4 mg IVPUSH ONETIME PRN PRN Reason: Nausea/Vomiting Phenylephrine HCl (Reese-Synephrine) Confirm Administered Dose 10 mg .ROUTE .STK- MED ONE Stop: 05/11/18 11:39 Phenylephrine HCl (Phenylephrine In Ns 100 Mcg/Ml) Confirm Administered Dose 1 mg .ROUTE .STK-MED ONE Stop: 05/11/18 12:06 Propofol (Diprivan 20 Ml) Confirm Administered Dose 400 mg .ROUTE .STK-MED ONE Stop: 05/11/18 09:17 Ropivacaine (Naropin 0.5%) Confirm Administered Dose 30 ml .ROUTE .STK-MED ONE Stop: 05/11/18 10:48 Scopolamine (Transderm-Scop) 1.5 mg TOP ONETIME ONE Stop: 05/11/18 10:46 Last Admin: 05/11/18 10:43 Dose: 1.5 mg Sodium Chloride (Saline Flush) 10 ml FLUSH ASDIRECTED PRN PRN Reason: Keep Vein Open Stop: 05/11/18 18:00 Tranexamic Acid (Cyklokapron) Confirm Administered Dose 1,000 mg .ROUTE .STK- MED ONE Stop: 05/11/18 09:13 Last Admin: 05/11/18 12:46 Dose: 1,000 mg Tranexamic Acid (Cyklokapron) Confirm Administered Dose 1,000 mg .ROUTE .STK- MED ONE Stop: 05/11/18 12:45 Vancomycin HCl (Vancomycin) Confirm Administered Dose 1 gm .ROUTE .STK-MED ONE Stop: 05/11/18 09:13 Last Admin: 05/11/18 12:39 Dose: 1 gm - Exam Quality Assessment: DVT Prophylaxis General: Alert, Oriented, Cooperative, No Acute Distress HEENT: Pupils Equal, Pupils Reactive, EOMI, Mucous Membr. Moist/[place] Neck: Supple, Trachea Midline, No JVD Lungs: Clear to Auscultation, Normal Respiratory Effort, Decreased Breath Sounds. No: Rales, Rhonchi, Stridor, Wheezing Cardiovascular: Regular Rate, Regular Rhythm GI/Abdominal Exam: Normal Bowel Sounds, Soft, Non-Tender, No Distention, No Abnormal Bruit (Male) Exam: Deferred Back Exam: Normal Inspection, Full Range of Motion Extremities: No Pedal Edema, Normal Capillary Refill, Leg Pain, Limited Range of Motion, Other (GERI bandage in place on right leg. Cooling pack in place. ) Peripheral Pulses: 2+: Dorsalis Pedis (L), Dorsalis Pedis (R), 3+: Radial (L), Radial (R) Skin: Warm, Dry, Intact Wound/Incisions: Dressing Dry and Intact, No Drainage Psy/Mental Status: Alert, Normal Affect, Normal Mood Consult PN Assessment/Plan POD#: 1 Procedures: Procedures ASSAY OF BLOOD/URIC ACID (05/22/17) ASSAY OF CALCIUM (04/23/17) ASSAY OF CALCIUM IN URINE (09/19/15) ASSAY OF MAGNESIUM (04/23/17) ASSAY OF NATRIURETIC PEPTIDE (04/23/17) ASSAY OF PARATHORMONE (05/22/17) ASSAY OF PROTEIN URINE (05/22/17) ASSAY OF TROPONIN QUANT (04/23/17) ASSAY OF URINE CREATININE (05/22/17) BLOOD CULTURE FOR BACTERIA (04/23/17) C-REACTIVE PROTEIN (04/23/17) CHEST X-RAY 1 VIEW FRONTAL (04/23/17) CHEST X-RAY 2VW FRONTAL&LATL (11/04/15) COMPLETE CBC W/AUTO DIFF WBC (12/18/17) COMPREHEN METABOLIC PANEL (04/23/17) CREATINE MB FRACTION (04/23/17) DXA BONE DENSITY AXIAL (05/15/17) ELECTROCARDIOGRAM TRACING (04/23/17) EMERGENCY DEPT VISIT (04/23/17) EMERGENCY DEPT VISIT (11/04/15) INFLUENZA ASSAY W/OPTIC (11/04/15) METABOLIC PANEL TOTAL CA (04/12/16) MICROBE SUSCEPTIBLE ANDREY (04/23/17) PROTHROMBIN TIME (04/23/17) RENAL FUNCTION PANEL (12/18/17) ROUTINE VENIPUNCTURE (12/18/17) THER/PROPH/DIAG INJ IV PUSH (04/23/17) URINALYSIS AUTO W/SCOPE (05/22/17) URINE BACTERIA CULTURE (04/23/17) URINE CULTURE/COLONY COUNT (04/23/17) VITAMIN D 25 HYDROXY (05/22/17) (1) S/P total knee arthroplasty SNOMED Code(s): 3506273521382, 411684511, 5882512953932 Code(s): Z96.659 - PRESENCE OF UNSPECIFIED ARTIFICIAL KNEE JOINT Priority: High Current Visit: Yes Qualifiers: Laterality: right Qualified Code(s): Z96.651 - Presence of right artificial knee joint (2) Osteoarthritis SNOMED Code(s): 191354910 Code(s): M19.90 - UNSPECIFIED OSTEOARTHRITIS, UNSPECIFIED SITE Priority: High Current Visit: Yes Qualifiers: Osteoarthritis location: knee Osteoarthritis type: primary Laterality: right Qualified Code(s): M17.11 - Unilateral primary osteoarthritis, right knee (3) Hypothyroid SNOMED Code(s): 53343109 Code(s): E03.9 - HYPOTHYROIDISM, UNSPECIFIED Priority: Low Current Visit : No Qualifiers: Hypothyroidism type: unspecified Qualified Code(s): E03.9 - Hypothyroidism , unspecified (4) Hypotonic bladder SNOMED Code(s): 343545290 Code(s): N31.2 - FLACCID NEUROPATHIC BLADDER, NOT ELSEWHERE CLASSIFIED Priority: Low Current Visit: No (5) Secondary hyperparathyroidism SNOMED Code(s): 48929843 Code(s): N25.81 - SECONDARY HYPERPARATHYROIDISM OF RENAL ORIGIN Priority: Low Current Visit: No (6) CAD (coronary artery disease) SNOMED Code(s): 64813886 Code(s): I25.10 - ATHSCL HEART DISEASE OF [place] CORONARY ARTERY W/O ANG PCTRS Priority: Medium Current Visit: No Qualifiers: Coronary Disease-Associated Artery/Lesion type: unspecified vessel or lesion type [place] vs. transplanted heart: unspecified whether [place] or transplanted heart Associated angina: angina presence unspecified Qualified Code(s): I25.10 - Atherosclerotic heart disease of [place] coronary artery without angina pectoris (7) S/P CABG (coronary artery bypass graft) SNOMED Code(s): 072429791, 636979257, 232704944 Code(s): Z95.1 - PRESENCE OF AORTOCORONARY BYPASS GRAFT Priority: Low Current Visit: No (8) Dyslipidemia SNOMED Code(s): 269004120 Code(s): E78.5 - HYPERLIPIDEMIA, UNSPECIFIED Priority: Low Current Visit : No (9) Chronic low back pain SNOMED Code(s): 007365115 Code(s): M54.5 - LOW BACK PAIN; G89.29 - OTHER CHRONIC PAIN Priority: Medium Current Visit: No Qualifiers: Back pain laterality: unspecified Sciatica presence: unspecified whether sciatica present Qualified Code(s): M54.5 - Low back pain; G89.29 - Other chronic pain (10) Barretts esophagus SNOMED Code(s): 103867830 Code(s): K22.70 - CARROLL'S ESOPHAGUS WITHOUT DYSPLASIA Priority: Low Current Visit: No Qualifiers: Carroll's esophagus type: with dysplasia of unspecified degree Qualified Code(s): K22.719 - Carroll's esophagus with dysplasia, unspecified; K22.71 - Carroll's esophagus with dysplasia (11) BPH (benign prostatic hyperplasia) SNOMED Code(s): 551937099 Code(s): N40.0 - BENIGN PROSTATIC HYPERPLASIA WITHOUT LOWER URINRY TRACT SYMP Priority: Low Current Visit: No Qualifiers: Lower urinary tract symptom presence: unspecified whether lower urinary tract symptoms present Qualified Code(s): N40.0 - Benign prostatic hyperplasia without lower urinary tract symptoms (12) CKD (chronic kidney disease) stage 3, GFR 30-59 ml/min SNOMED Code(s): 755809363 Code(s): N18.3 - CHRONIC KIDNEY DISEASE, STAGE 3 (MODERATE) Priority: Medium Current Visit: Yes (13) Neuropathy SNOMED Code(s): 390311214 Code(s): G62.9 - POLYNEUROPATHY, UNSPECIFIED Priority: Medium Current Visit: Yes (14) Hypoxia SNOMED Code(s): 170247098 Code(s): R09.02 - HYPOXEMIA Priority: High Current Visit: Yes Problem List Initiated/Reviewed/Updated: Yes Plan: I/P: Acute: S/P right total knee arthroplasty - post-operative day 1 -DVT prophylaxis and pain management per primary care team -PT/OT -IS/RT -Monitor oxygen saturation -Titrate oxygen as needed -Vital signs stable -Monitor labs -Pre-operative Hgb was 14.6, Now 12.4 -Pre-operative GFR was 42.2, Now 37 Osteoarthritis of right knee -Pain management per primary care team Post-operative hypoxia/respiratory depression -2/2 oversedation, suspected underlying health issues -Was given Narcan in PACU with good response -CPAP overnight -Still unable to wean off O2 - still on 1L -Appears to have some components of sleep apnea. Suggest PCP f/u for sleep study/evaluation -Overnight pulse ox study -May need oxygen at discharge -RT consult Chronic: CAD with CABG in 2016 Dyslipidemia Obesity Chronic lower back pain OA Barretts disease BPH CKD Stage 3 Depression Secondary hyperparathyroidism [place] Hypotonic bladder Hypothyroid Neuropathy Plan: CM for discharge planning GI prophylaxis Home medications as indicated Other orders as listed above Routine AM labs He is a full code. His PCP is Dr. Queen from [place] Thank you for allowing us to participate in the care of this patient!!
[2018-05-12] MEDS ORDERED: Sodium Chloride 0.9% 250 ML IV ONE (07:07)
[2018-05-12] MEDS: Folic Acid 1 MG Tab PO SCH (08:16)
[2018-05-12] MEDS: Finasteride 5 MG Tab PO SCH (08:16)
[2018-05-12] MEDS: Metoprolol Tartrate 25 MG Tab PO SCH ×2 (08:16→20:03)
[2018-05-12] MEDS: Docusate Sodium 100 MG Cap PO SCH ×2 (08:16→20:03)
[2018-05-12] MEDS: Levothyroxine 112 MCG Tab PO SCH (08:16)
[2018-05-12] MEDS: Aspirin 325 MG Tab.EC PO SCH ×2 (08:17→20:03)
[2018-05-12] MEDS: Pantoprazole 40 MG Tab.CR PO SCH (08:17)
[2018-05-12] MEDS: Fenofibrate Nanocrystallized 145 MG Tab PO SCH (08:17)
[2018-05-12] MEDS: Pregabalin 75 MG Cap PO SCH ×2 (08:17→20:03)
[2018-05-12] MEDS: Cholecalciferol (Vitamin D3) 1,000 Unit Tab PO SCH (08:17)
[2018-05-12] MEDS: Multivitamins,Therapeutic Tab PO SCH (08:17)
[2018-05-12] MEDS ORDERED: Non-Formulary Medication 1 Each (Ubidecarenone [Co Q-10] 1 TAB) PO SCH (09:00)
--- NOTE | 2018-05-12 09:40 | PCM.SURGPN ---
- General Info Date of Service: 05/12/18 POD#: 1 Functional Status: Reports: Pain Controlled, Tolerating Diet, Other (The pt was admitted to ICU after an episode of respiratory depression in PACU. The pt has been stable.) - Patient Data Vitals - Most Recent: Last Vital Signs Temp 98.2 F 05/12/18 08:00 Pulse 72 05/12/18 08:16 Resp 15 05/12/18 08:00 BP 108/47 L 05/12/18 08:16 Pulse Ox 91 L 05/12/18 08:00 Weight - Most Recent: 238 lb I&O - Last 24 Hours: Intake & Output 05/11/18 05/12/18 05/12/18 22:59 06:59 14:59 Intake Total 1080 214 Output Total 545 850 400 Balance 535 -275 -400 Lab Results Last 24 Hrs: Laboratory Results - last 24 hr 05/12/18 05/12/18 Range/Units 05:30 05:30 WBC 11.92 H (4.23-9.07) K/mm3 RBC 4.26 L (4.63-6.08) M/mm3 Hgb 12.4 L (13.7-17.5) gm/L Hct 38.1 L (40.1-51.0) % MCV 89.4 (79.0-92.2) fl MCH 29.1 (25.7-32.2) pg MCHC 32.5 (32.2-35.5) g/dl RDW Std Deviation 49.0 H (35.1-43.9) fL Plt Count 162 L (163-337) K/mm3 MPV 10.5 (9.4-12.3) fl Sodium 135 L (136-145) mEq/L Potassium 4.5 (3.5-5.1) mEq/L Chloride 100 (98-107) mEq/L Carbon Dioxide 29 (21-32) mEq/L Anion Gap 10.5 (5-15) BUN 23 H (7-18) mg/dL Creatinine 1.8 H (0.7-1.3) mg/dL Est Cr Clr Drug Dosing 33.25 mL/min Estimated GFR (MDRD) 37 (>60) mL/min BUN/Creatinine Ratio 12.8 L (14-18) Glucose 143 H (83-115) mg/dL Calcium 8.8 (8.5-10.1) mg/dL Total Bilirubin 0.3 (0.2-1.0) mg/dL AST 23 (15-37) U/L ALT 23 (16-63) U/L Alkaline Phosphatase 28 L (46-116) U/L Total Protein 6.7 (6.4-8.2) g/dl Albumin 3.2 L (3.4-5.0) g/dl Globulin 3.5 gm/dL Albumin/Globulin Ratio 0.9 L (1-2) Med Orders - Current: Current Medications Hydrocodone Bitart/Acetaminophen ([place] 325-5 Mg) 1 - 2 tab PO Q4H PRN PRN Reason: Pain Last Admin: 05/12/18 05:25 Dose: 2 tab Amoxicillin (Amoxil) 250 mg PO DAILY [facility] Aspirin (Ecotrin) 325 mg PO BID [facility] Last Admin: 05/12/18 08:17 Dose: 325 mg Bisacodyl (Dulcolax) 5 mg PO DAILY PRN PRN Reason: Constipation Cholecalciferol (Vitamin D3) 4,000 units PO DAILY [facility] Last Admin: 05/12/18 08:17 Dose: 4,000 units Citalopram Hydrobromide (Celexa) 20 mg PO BEDTIME [facility] Last Admin: 05/11/18 20:04 Dose: 20 mg Docusate Sodium (Colace) 100 mg PO BID [facility] Last Admin: 05/12/18 08:16 Dose: 100 mg Fenofibrate (Tricor) 145 mg PO DAILY [facility] Last Admin: 05/12/18 08:17 Dose: 145 mg Finasteride (Proscar) 5 mg PO DAILY [facility] Last Admin: 05/12/18 08:16 Dose: 5 mg Folic Acid (Folic Acid) 1 mg PO DAILY [facility] Last Admin: 05/12/18 08:16 Dose: 1 mg Furosemide (Lasix) 40 mg PO Q48H [facility] Last Admin: 05/11/18 18:12 Dose: 40 mg Hydromorphone HCl (Dilaudid) 0.2 mg IVPUSH Q2H PRN PRN Reason: Pain Cefazolin Sodium/Dextrose 2 gm (/ Premix) 50 mls @ 100 mls/hr IV Q8H [facility] Stop: 05/12/18 09:59 Last Admin: 05/12/18 01:04 Dose: 100 mls/hr Sodium Chloride (Normal Saline) 1,000 mls @ 25 mls/hr IV ASDIRECTED [facility] Stop: 05/15/18 14:41 Last Infusion: 05/12/18 07:35 Dose: 25 mls/hr Levothyroxine Sodium (Levothyroxine) 112 mcg PO DAILY [facility] Last Admin: 05/12/18 08:16 Dose: 112 mcg Metoprolol Tartrate (Lopressor) 25 mg PO BID [facility] Last Admin: 05/12/18 08:16 Dose: 25 mg Miscellaneous Information (Remove Patch) 0 ea TRDERM ONETIME ONE Stop: 05/14/18 10:46 Multivitamins (Thera) 1 each PO DAILY [facility] Last Admin: 05/12/18 08:17 Dose: 1 each Naloxone HCl (Narcan) 0.1 mg IVPUSH Q5M PRN PRN Reason: Oversedation Nitroglycerin (Nitrostat) 0.4 mg SL Q5M PRN PRN Reason: Chest Pain Ondansetron HCl (Zofran) 4 mg IVPUSH Q6H PRN PRN Reason: Nausea/Vomiting Pantoprazole Sodium (Protonix) 40 mg PO DAILY [facility] Last Admin: 05/12/18 08:17 Dose: 40 mg Pregabalin (Lyrica) 150 mg PO BID [facility] Last Admin: 05/12/18 08:17 Dose: 150 mg Senna (Senna) 8.6 mg PO BID PRN PRN Reason: Constipation Simvastatin (Zocor) 40 mg PO BEDTIME [facility] Tamsulosin HCl (Flomax) 0.4 mg PO BEDTIME [facility] Last Admin: 05/11/18 20:04 Dose: 0.4 mg Discontinued Medications Artificial Tears (Artificial Tears Ointment) Confirm Administered Dose 3.5 gm .ROUTE .STK-MED ONE Stop: 05/11/18 09:34 Bupivacaine HCl (Marcaine 0.25%) Confirm Administered Dose 30 ml .ROUTE .STK- MED ONE Stop: 05/11/18 09:13 Last Admin: 05/11/18 12:35 Dose: 20 ml Cefazolin Sodium (Ancef) Confirm Administered Dose 2 gm .ROUTE .STK-MED ONE Stop: 05/11/18 09:13 Last Admin: 05/11/18 12:30 Dose: 2 gm Cefazolin Sodium (Ancef) Confirm Administered Dose 2 gm .ROUTE .STK-MED ONE Stop: 05/11/18 09:24 Epinephrine HCl 0.3 mg/Cefuroxime Sodium 750 mg/Ketorolac Tromethamine 30 mg/ Sodium Chloride 28.7 ml 0 mg .XX ONETIME ONE Stop: 05/11/18 11:01 Last Admin: 05/11/18 18:38 Dose: Not Given Denosumab (Prolia) 60 mg .XX ASDIRECTED [facility] Dexamethasone (Dexamethasone) Confirm Administered Dose 8 mg .ROUTE .STK-MED ONE Stop: 05/11/18 11:44 Diphenhydramine HCl (Benadryl) 25 mg IVPUSH Q6H PRN PRN Reason: Pruritis Ephedrine Sulfate (Ephedrine In Ns) Confirm Administered Dose 25 mg .ROUTE .STK- MED ONE Stop: 05/11/18 12:06 Epinephrine HCl (Adrenalin) Confirm Administered Dose 1 mg .ROUTE .STK-MED ONE Stop: 05/11/18 10:49 Famotidine (Pepcid) Confirm Administered Dose 20 mg .ROUTE .STK-MED ONE Stop: 05/11/18 10:44 Fentanyl (Sublimaze) Confirm Administered Dose 100 mcg .ROUTE .STK-MED ONE Stop: 05/11/18 09:16 Fentanyl (Sublimaze) Confirm Administered Dose 100 mcg .ROUTE .STK-MED ONE Stop: 05/11/18 12:53 Fentanyl (Sublimaze) 50 mcg IVPUSH Q5M PRN PRN Reason: Pain Stop: 05/11/18 23:00 Last Admin: 05/11/18 13:55 Dose: 50 mcg Glycopyrrolate () Confirm Administered Dose 1 mg .ROUTE .STK-MED ONE Stop: 05/11/18 13:21 Hydromorphone HCl (Dilaudid) Confirm Administered Dose 0.5 mg .ROUTE .STK-MED ONE Stop: 05/11/18 11:18 Hydromorphone HCl (Dilaudid) 0.5 mg IVPUSH ASDIRECTED PRN PRN Reason: Severe Pain Stop: 05/11/18 23:00 Lactated Ringer's (Ringers, Lactated) 1,000 mls @ 125 mls/hr IV ASDIRECTED [facility] Stop: 05/11/18 23:00 Last Admin: 05/11/18 09:40 Dose: 125 mls/hr Lactated Ringer's (Ringers, Lactated) Confirm Administered Dose 2,000 mls @ as directed .ROUTE .STK-MED ONE Stop: 05/11/18 09:17 Lidocaine HCl (Xylocaine-Mpf 1%) Confirm Administered Dose 4 mls @ as directed .ROUTE .STK-MED ONE Stop: 05/11/18 09:23 Sodium Chloride (Normal Saline) Confirm Administered Dose 100 mls @ as directed .ROUTE .STK-MED ONE Stop: 05/11/18 11:39 Lidocaine HCl (Xylocaine-Mpf 1%) Confirm Administered Dose 2 mls @ as directed .ROUTE .STK-MED ONE Stop: 05/11/18 11:57 Acetaminophen (Ofirmev) 100 mls @ 400 mls/hr IV ONETIME ONE Stop: 05/11/18 14:27 Last Admin: 05/11/18 14:29 Dose: 400 mls/hr Sodium Chloride (Normal Saline) 250 mls @ 999 mls/hr IV .BOLUS ONE Stop: 05/12/18 07:22 Last Admin: 05/12/18 07:20 Dose: Not Given Ketamine HCl (Ketalar) Confirm Administered Dose 500 mg .ROUTE .STK-MED ONE Stop: 05/11/18 09:18 Lidocaine/Sodium Bicarbonate (Buffered Lidocaine 1% In Ns 8.4%) 0.25 ml IDERM ONETIME PRN PRN Reason: Prior to IV Start Stop: 05/11/18 18:00 Last Admin: 05/11/18 09:40 Dose: 0.25 ml Magnesium Hydroxide (Milk Of Magnesia) 30 ml PO BID PRN PRN Reason: Constipation Metoprolol Tartrate (Lopressor) Confirm Administered Dose 5 mg .ROUTE .STK-MED ONE Stop: 05/11/18 14:06 Metoprolol Tartrate (Lopressor) Confirm Administered Dose 5 mg .ROUTE .STK-MED ONE Stop: 05/11/18 14:07 Midazolam HCl (Versed 1 Mg/Ml) Confirm Administered Dose 4 mg .ROUTE .STK-MED ONE Stop: 05/11/18 09:18 Naloxone HCl (Narcan) Confirm Administered Dose 0.4 mg .ROUTE .STK-MED ONE Stop: 05/11/18 13:57 Last Admin: 05/11/18 18:37 Dose: Not Given Naloxone HCl (Narcan) 0.4 mg IVPUSH ONETIME PRN PRN Reason: Respiratory Depression Last Admin: 05/11/18 13:57 Dose: 0.4 mg Neostigmine Methylsulfate (Neostigmine) Confirm Administered Dose 5 mg .ROUTE .STK-MED ONE Stop: 05/11/18 13:21 Non-Formulary Medication (Ubidecarenone [Co Q-10]) 1 tab PO DAILY [facility] Ondansetron HCl (Zofran) Confirm Administered Dose 4 mg .ROUTE .STK-MED ONE Stop: 05/11/18 09:17 Ondansetron HCl (Zofran) 4 mg IVPUSH ONETIME PRN PRN Reason: Nausea/Vomiting Phenylephrine HCl (Reese-Synephrine) Confirm Administered Dose 10 mg .ROUTE .STK- MED ONE Stop: 05/11/18 11:39 Phenylephrine HCl (Phenylephrine In Ns 100 Mcg/Ml) Confirm Administered Dose 1 mg .ROUTE .STK-MED ONE Stop: 05/11/18 12:06 Propofol (Diprivan 20 Ml) Confirm Administered Dose 400 mg .ROUTE .STK-MED ONE Stop: 05/11/18 09:17 Ropivacaine (Naropin 0.5%) Confirm Administered Dose 30 ml .ROUTE .STK-MED ONE Stop: 05/11/18 10:48 Scopolamine (Transderm-Scop) 1.5 mg TOP ONETIME ONE Stop: 05/11/18 10:46 Last Admin: 05/11/18 10:43 Dose: 1.5 mg Sodium Chloride (Saline Flush) 10 ml FLUSH ASDIRECTED PRN PRN Reason: Keep Vein Open Stop: 05/11/18 18:00 Tranexamic Acid (Cyklokapron) Confirm Administered Dose 1,000 mg .ROUTE .STK- MED ONE Stop: 05/11/18 09:13 Last Admin: 05/11/18 12:46 Dose: 1,000 mg Tranexamic Acid (Cyklokapron) Confirm Administered Dose 1,000 mg .ROUTE .STK- MED ONE Stop: 05/11/18 12:45 Vancomycin HCl (Vancomycin) Confirm Administered Dose 1 gm .ROUTE .STK-MED ONE Stop: 05/11/18 09:13 Last Admin: 05/11/18 12:39 Dose: 1 gm - Exam Wound/Incisions: Dressing Dry and Intact Quality Assessment: Supplemental Oxygen General: Alert, Cooperative, No Acute Distress Lungs: Normal Respiratory Effort Extremities: Other (NVS intact for BLE. Gomez's negative for BLE.) - Problem List Review Problem List Initiated/Reviewed/Updated: Yes - My Orders Last 24 Hours: Active Orders 24 hr Category Date Time Status Patient Status [ADT] Routine ADT 05/12/18 06:38 Active Ambulate [RC] PER UNIT ROUTINE Care 05/11/18 13:43 Active Cooling Warming Measures [RC] ASDIRECTED Care 05/11/18 13:40 Inactive May Shower [RC] ASDIRECTED Care 05/11/18 13:43 Active Notify Provider Consults [RC] ASDIRECTED Care 05/11/18 13:43 Active Notify Provider [RC] ASDIRECTED Care 05/11/18 13:40 Active Oxygen Therapy [RC] PRN Care 05/11/18 13:44 Active Pulse Oximetry [RC] ASDIRECTED Care 05/11/18 13:40 Active RT BiPAP/CPAP [RC] ASDIRECTED Care 05/11/18 16:12 Active Up to Chair [RC] ASDIRECTED Care 05/11/18 13:43 Active Vital Signs [RC] Q15M Care 05/11/18 13:40 Inactive Vital Signs [RC] Q4HR Care 05/11/18 13:44 Active Consult to Physician [CONS] Routine Cons 05/11/18 13:42 Active Regular Diet [DIET] Diet 05/11/18 Lunch Active Acetaminophen/HYDROcodone [[place] 325-5 MG] Med 05/11/18 12:30 Active 1 - 2 tab PO Q4H PRN Amoxicillin [Amoxil] Med 05/13/18 09:00 Active 250 mg PO DAILY Aspirin [Ecotrin] Med 05/12/18 09:00 Active 325 mg PO BID Bisacodyl [Dulcolax] Med 05/11/18 13:43 Active 5 mg PO DAILY PRN Cholecalciferol (Vitamin D3) [Vitamin D3] Med 05/12/18 09:00 Active 4,000 units PO DAILY Citalopram [Celexa] Med 05/11/18 21:00 Active 20 mg PO BEDTIME Docusate Sodium [Colace] Med 05/11/18 21:00 Active 100 mg PO BID Fenofibrate Nanocrystallized [Tricor] Med 05/12/18 09:00 Active 145 mg PO DAILY Finasteride [Proscar] Med 05/12/18 09:00 Active 5 mg PO DAILY Folic Acid Med 05/12/18 09:00 Active 1 mg PO DAILY Furosemide [Lasix] Med 05/11/18 13:45 Active 40 mg PO Q48H HYDROmorphone [Dilaudid] Med 05/11/18 09:48 Active 0.2 mg IVPUSH Q2H PRN Levothyroxine Med 05/12/18 09:00 Active 112 mcg PO DAILY Metoprolol Tartrate [Lopressor] Med 05/11/18 21:00 Active 25 mg PO BID Multivitamins,Therapeutic [Thera] Med 05/12/18 09:00 Active 1 each PO DAILY Naloxone [Narcan] Med 05/11/18 13:43 Active 0.1 mg IVPUSH Q5M PRN Nitroglycerin [Nitrostat] Med 05/11/18 13:36 Active 0.4 mg SL Q5M PRN Ondansetron [Zofran] Med 05/11/18 13:43 Active 4 mg IVPUSH Q6H PRN Pantoprazole [ProTONIX] Med 05/12/18 09:00 Active 40 mg PO DAILY Pregabalin [Lyrica] Med 05/11/18 21:00 Active 150 mg PO BID Remove Patch Med 05/14/18 10:45 Once 0 ea TRDERM ONETIME ONE Sennosides [Senna] Med 05/11/18 13:43 Active 8.6 mg PO BID PRN Simvastatin [Zocor] Med 05/12/18 21:00 Active 40 mg PO BEDTIME Sodium Chloride 0.9% [Normal Saline] 1,000 ml Med 05/11/18 14:45 Active IV ASDIRECTED Tamsulosin [Flomax] Med 05/11/18 21:00 Active 0.4 mg PO BEDTIME ceFAZolin [Ancef] 2 gm Med 05/11/18 17:30 Active Premix Bag 1 bag IV Q8H Antiembolic Hose [OM.PC] Per Unit Routine Oth 05/11/18 13:45 Ordered Ice Therapy [OM.PC] Per Unit Routine Oth 05/11/18 13:44 Ordered Resuscitation Status Routine Resus Stat 05/11/18 13:43 Ordered Medication Orders Hydrocodone Bitart/Acetaminophen ([place] 325-5 Mg) 1 - 2 tab PO Q4H PRN PRN Reason: Pain Last Admin: 05/12/18 05:25 Dose: 2 tab Admin: 05/11/18 22:09 Dose: 1 tab Admin: 05/11/18 17:47 Dose: 1 tab Amoxicillin (Amoxil) 250 mg PO DAILY [facility] Aspirin (Ecotrin) 325 mg PO BID [facility] Last Admin: 05/12/18 08:17 Dose: 325 mg Bisacodyl (Dulcolax) 5 mg PO DAILY PRN PRN Reason: Constipation Cholecalciferol (Vitamin D3) 4,000 units PO DAILY [facility] Last Admin: 05/12/18 08:17 Dose: 4,000 units Citalopram Hydrobromide (Celexa) 20 mg PO BEDTIME [facility] Last Admin: 05/11/18 20:04 Dose: 20 mg Docusate Sodium (Colace) 100 mg PO BID [facility] Last Admin: 05/12/18 08:16 Dose: 100 mg Admin: 05/11/18 20:04 Dose: 100 mg Fenofibrate (Tricor) 145 mg PO DAILY [facility] Last Admin: 05/12/18 08:17 Dose: 145 mg Finasteride (Proscar) 5 mg PO DAILY [facility] Last Admin: 05/12/18 08:16 Dose: 5 mg Folic Acid (Folic Acid) 1 mg PO DAILY [facility] Last Admin: 05/12/18 08:16 Dose: 1 mg Furosemide (Lasix) 40 mg PO Q48H [facility] Last Admin: 05/11/18 18:12 Dose: 40 mg Hydromorphone HCl (Dilaudid) 0.2 mg IVPUSH Q2H PRN PRN Reason: Pain Cefazolin Sodium/Dextrose 2 gm (/ Premix) 50 mls @ 100 mls/hr IV Q8H [facility] Stop: 05/12/18 09:59 Last Admin: 05/12/18 01:04 Dose: 100 mls/hr Infusion: 05/11/18 18:06 Dose: 100 mls/hr Admin: 05/11/18 17:36 Dose: 100 mls/hr Sodium Chloride (Normal Saline) 1,000 mls @ 25 mls/hr IV ASDIRECTED [facility] Stop: 05/15/18 14:41 Last Infusion: 05/12/18 07:35 Dose: 25 mls/hr Infusion: 05/12/18 07:20 Dose: 999 mls/hr Admin: 05/11/18 14:50 Dose: 25 mls/hr Levothyroxine Sodium (Levothyroxine) 112 mcg PO DAILY [facility] Last Admin: 05/12/18 08:16 Dose: 112 mcg Metoprolol Tartrate (Lopressor) 25 mg PO BID [facility] Last Admin: 05/12/18 08:16 Dose: 25 mg Admin: 05/11/18 20:04 Dose: 25 mg Miscellaneous Information (Remove Patch) 0 ea TRDERM ONETIME ONE Stop: 05/14/18 10:46 Multivitamins (Thera) 1 each PO DAILY [facility] Last Admin: 05/12/18 08:17 Dose: 1 each Naloxone HCl (Narcan) 0.1 mg IVPUSH Q5M PRN PRN Reason: Oversedation Nitroglycerin (Nitrostat) 0.4 mg SL Q5M PRN PRN Reason: Chest Pain Ondansetron HCl (Zofran) 4 mg IVPUSH Q6H PRN PRN Reason: Nausea/Vomiting Pantoprazole Sodium (Protonix) 40 mg PO DAILY [facility] Last Admin: 05/12/18 08:17 Dose: 40 mg Pregabalin (Lyrica) 150 mg PO BID [facility] Last Admin: 05/12/18 08:17 Dose: 150 mg Admin: 05/11/18 20:04 Dose: 150 mg Senna (Senna) 8.6 mg PO BID PRN PRN Reason: Constipation Simvastatin (Zocor) 40 mg PO BEDTIME [facility] Tamsulosin HCl (Flomax) 0.4 mg PO BEDTIME [facility] Last Admin: 05/11/18 20:04 Dose: 0.4 mg - Assessment Assessment (Free Text/Narrative):: POD#1 - right TKA - Plan Plan (Free Text/Narrative):: 1. Hgb 12.4. 2. The pt has been changed to MSP status from ICU status. 3. Medical management per Hospitalist service. 4. 325mg ASA BID, TEDs, frequent mobility. The pt's case has been discussed with Dr. Iniguez.
--- NOTE | 2018-05-12 09:40 | PCM48HPAN ---
Post Anesthesia Note - EVALUATION WITHIN 48HRS OF ANESTHETIC Vital Signs in Normal Range: Yes Patient Participated in Evaluation: No (In shower. Assess per RN.) Respiratory Function Stable: Yes Airway Patent: Yes Cardiovascular Function Stable: Yes Hydration Status Stable: Yes Pain Control Satisfactory: Yes Nausea and Vomiting Control Satisfactory: Yes Mental Status Recovered: Yes - COMMENTS/OBSERVATIONS Free Text/Narrative:: no anesthesia complications noted
[2018-05-12] MEDS: Sodium Chloride 0.9% 1,000 ML IV SCH (15:41)
[2018-05-12] MEDS: Citalopram 20 MG Tab PO SCH (20:03)
[2018-05-12] MEDS: Tamsulosin 0.4 MG Cap.ER PO SCH (20:04)
[2018-05-12] MEDS ORDERED: Simvastatin 40 MG Tab PO SCH (21:00)
[2018-05-13] MEDS: Acetaminophen/HYDROcodone 325-5 MG Tab PO PRN ×2 (06:11→12:41)
--- NOTE | 2018-05-13 07:29 | PCM.CONSN ---
- General Info Date of Service: 05/13/18 Admission Dx/Problem (Free Text): Osteoarthritis of the knee Subjective Update: In to see Neo. He is sitting in the chair. He is on oxygen. I am told his oxygen saturations went to 47% last night. He will be discharged on home O2 as well as a CPAP machine. He will need a formal sleep study once off pain medications for surgery. He is otherwise doing well. Kidney function is slightly worse today. Will order 250 NS bolus before discharge. He has no concerns or complaints. No nursing concerns. He will be discharged to [facility] today. Functional Status: Reports: Pain Controlled, Tolerating Diet, Ambulating, Urinating, Incentive Spirometry. Denies: New Symptoms - Review of Systems General: Reports: No Symptoms. Denies: Fever, Weakness, Fatigue, Malaise HEENT: Reports: No Symptoms. Denies: Eye Pain, Sore Throat Pulmonary: Reports: No Symptoms. Denies: Shortness of Breath, Cough, Sputum, Wheezing Cardiovascular: Reports: No Symptoms. Denies: Chest Pain, Palpitations, Lightheadedness Gastrointestinal: Reports: No Symptoms. Denies: Abdominal Pain, Constipation, Diarrhea, Nausea, Vomiting Genitourinary: Reports: No Symptoms Musculoskeletal: Reports: Leg Pain (12/02) Skin: Reports: No Symptoms Neurological: Reports: No Symptoms. Denies: Confusion Psychiatric: Reports: No Symptoms - Patient Data Vitals - Most Recent: Last Vital Signs Temp 97.4 F 05/13/18 03:00 Pulse 108 H 05/13/18 03:00 Resp 18 05/13/18 03:00 BP 115/60 05/13/18 03:00 Pulse Ox 94 L 05/13/18 06:44 Weight - Most Recent: 236 lb I&O - Last 24 Hours: Intake & Output 05/12/18 05/13/18 05/13/18 22:59 06:59 14:59 Intake Total 1739 300 Output Total 500 600 Balance 1239 -300 Lab Results Last 24 Hours: Laboratory Results - last 24 hr 05/12/18 05/13/18 05/13/18 Range/Units 05:30 05:30 05:30 WBC 9.05 (4.23-9.07) K/mm3 RBC 4.05 L (4.63-6.08) M/mm3 Hgb 11.5 L (13.7-17.5) gm/L Hct 36.3 L (40.1-51.0) % MCV 89.6 (79.0-92.2) fl MCH 28.4 (25.7-32.2) pg MCHC 31.7 L (32.2-35.5) g/dl RDW Std Deviation 48.3 H (35.1-43.9) fL Plt Count 169 (163-337) K/mm3 MPV 10.5 (9.4-12.3) fl Neut % (Auto) 61.7 (34.0-67.9) % Lymph % (Auto) 19.9 L (21.8-53.1) % Bowman % (Auto) 16.1 H (5.3-12.2) % Eos % (Auto) 1.4 (0.8-7.0) Baso % (Auto) 0.6 (0.1-1.2) % Neut # (Auto) 5.58 H (1.78-5.38) K/mm3 Lymph # (Auto) 1.80 (1.32-3.57) K/mm3 Bowman # (Auto) 1.46 H (0.30-0.82) K/mm3 Eos # (Auto) 0.13 (0.04-0.54) K/mm3 Baso # (Auto) 0.05 (0.01-0.08) K/mm3 Sodium 131 L (136-145) mEq/L Potassium 4.6 (3.5-5.1) mEq/L Chloride 98 (98-107) mEq/L Carbon Dioxide 29 (21-32) mEq/L Anion Gap 8.6 (5-15) BUN 27 H (7-18) mg/dL Creatinine 1.9 H (0.7-1.3) mg/dL Est Cr Clr Drug Dosing 31.50 mL/min Estimated GFR (MDRD) 35 (>60) mL/min BUN/Creatinine Ratio 14.2 (14-18) Glucose 143 H (83-115) mg/dL Calcium 9.4 (8.5-10.1) mg/dL Magnesium 2.5 H 2.4 (1.8-2.4) mg/dl Med Orders - Current: Current Medications Hydrocodone Bitart/Acetaminophen (Rosamond 325-5 Mg) 1 - 2 tab PO Q4H PRN PRN Reason: Pain Last Admin: 05/13/18 06:11 Dose: 1 tab Amoxicillin (Amoxil) 250 mg PO DAILY [facility] Aspirin (Ecotrin) 325 mg PO BID [facility] Last Admin: 05/12/18 20:03 Dose: 325 mg Bisacodyl (Dulcolax) 5 mg PO DAILY PRN PRN Reason: Constipation Cholecalciferol (Vitamin D3) 4,000 units PO DAILY [facility] Last Admin: 05/12/18 08:17 Dose: 4,000 units Citalopram Hydrobromide (Celexa) 20 mg PO BEDTIME [facility] Last Admin: 05/12/18 20:03 Dose: 20 mg Docusate Sodium (Colace) 100 mg PO BID [facility] Last Admin: 05/12/18 20:03 Dose: 100 mg Fenofibrate (Tricor) 145 mg PO DAILY [facility] Last Admin: 05/12/18 08:17 Dose: 145 mg Finasteride (Proscar) 5 mg PO DAILY [facility] Last Admin: 05/12/18 08:16 Dose: 5 mg Folic Acid (Folic Acid) 1 mg PO DAILY [facility] Last Admin: 05/12/18 08:16 Dose: 1 mg Furosemide (Lasix) 40 mg PO Q48H [facility] Last Admin: 05/11/18 18:12 Dose: 40 mg Hydromorphone HCl (Dilaudid) 0.2 mg IVPUSH Q2H PRN PRN Reason: Pain Levothyroxine Sodium (Levothyroxine) 112 mcg PO DAILY [facility] Last Admin: 05/12/18 08:16 Dose: 112 mcg Magnesium Sulfate (Pharmacy To Dose - Magnesium Replacement) 0 dose .XX ASDIRECTED PRN PRN Reason: RX TO DOSE MAG Metoprolol Tartrate (Lopressor) 25 mg PO BID [facility] Last Admin: 05/12/18 20:03 Dose: 25 mg Miscellaneous Information (Remove Patch) 0 ea TRDERM ONETIME ONE Stop: 05/14/18 10:46 Multivitamins (Thera) 1 each PO DAILY [facility] Last Admin: 05/12/18 08:17 Dose: 1 each Naloxone HCl (Narcan) 0.1 mg IVPUSH Q5M PRN PRN Reason: Oversedation Nitroglycerin (Nitrostat) 0.4 mg SL Q5M PRN PRN Reason: Chest Pain Ondansetron HCl (Zofran) 4 mg IVPUSH Q6H PRN PRN Reason: Nausea/Vomiting Pantoprazole Sodium (Protonix) 40 mg PO DAILY [facility] Last Admin: 05/12/18 08:17 Dose: 40 mg Potassium Chloride (Pharmacy To Dose - Potassium Replacement) 0 dose .XX ASDIRECTED PRN PRN Reason: RX TO DOSE K Pregabalin (Lyrica) 150 mg PO BID [facility] Last Admin: 05/12/18 20:03 Dose: 150 mg Senna (Senna) 8.6 mg PO BID PRN PRN Reason: Constipation Simvastatin (Zocor) 40 mg PO BEDTIME [facility] Last Admin: 05/12/18 20:03 Dose: 40 mg Tamsulosin HCl (Flomax) 0.4 mg PO BEDTIME [facility] Last Admin: 05/12/18 20:04 Dose: 0.4 mg Discontinued Medications Artificial Tears (Artificial Tears Ointment) Confirm Administered Dose 3.5 gm .ROUTE .STK-MED ONE Stop: 05/11/18 09:34 Bupivacaine HCl (Marcaine 0.25%) Confirm Administered Dose 30 ml .ROUTE .STK- MED ONE Stop: 05/11/18 09:13 Last Admin: 05/11/18 12:35 Dose: 20 ml Cefazolin Sodium (Ancef) Confirm Administered Dose 2 gm .ROUTE .STK-MED ONE Stop: 05/11/18 09:13 Last Admin: 05/11/18 12:30 Dose: 2 gm Cefazolin Sodium (Ancef) Confirm Administered Dose 2 gm .ROUTE .STK-MED ONE Stop: 05/11/18 09:24 Epinephrine HCl 0.3 mg/Cefuroxime Sodium 750 mg/Ketorolac Tromethamine 30 mg/ Sodium Chloride 28.7 ml 0 mg .XX ONETIME ONE Stop: 05/11/18 11:01 Last Admin: 05/11/18 18:38 Dose: Not Given Denosumab (Prolia) 60 mg .XX ASDIRECTED [facility] Dexamethasone (Dexamethasone) Confirm Administered Dose 8 mg .ROUTE .STK-MED ONE Stop: 05/11/18 11:44 Diphenhydramine HCl (Benadryl) 25 mg IVPUSH Q6H PRN PRN Reason: Pruritis Ephedrine Sulfate (Ephedrine In Ns) Confirm Administered Dose 25 mg .ROUTE .STK- MED ONE Stop: 05/11/18 12:06 Epinephrine HCl (Adrenalin) Confirm Administered Dose 1 mg .ROUTE .STK-MED ONE Stop: 05/11/18 10:49 Famotidine (Pepcid) Confirm Administered Dose 20 mg .ROUTE .STK-MED ONE Stop: 05/11/18 10:44 Fentanyl (Sublimaze) Confirm Administered Dose 100 mcg .ROUTE .STK-MED ONE Stop: 05/11/18 09:16 Fentanyl (Sublimaze) Confirm Administered Dose 100 mcg .ROUTE .STK-MED ONE Stop: 05/11/18 12:53 Fentanyl (Sublimaze) 50 mcg IVPUSH Q5M PRN PRN Reason: Pain Stop: 05/11/18 23:00 Last Admin: 05/11/18 13:55 Dose: 50 mcg Glycopyrrolate () Confirm Administered Dose 1 mg .ROUTE .STK-MED ONE Stop: 05/11/18 13:21 Hydromorphone HCl (Dilaudid) Confirm Administered Dose 0.5 mg .ROUTE .STK-MED ONE Stop: 05/11/18 11:18 Hydromorphone HCl (Dilaudid) 0.5 mg IVPUSH ASDIRECTED PRN PRN Reason: Severe Pain Stop: 05/11/18 23:00 Lactated Ringer's (Ringers, Lactated) 1,000 mls @ 125 mls/hr IV ASDIRECTED [facility] Stop: 05/11/18 23:00 Last Admin: 05/11/18 09:40 Dose: 125 mls/hr Cefazolin Sodium/Dextrose 2 gm (/ Premix) 50 mls @ 100 mls/hr IV Q8H [facility] Stop: 05/12/18 09:59 Last Admin: 05/12/18 09:43 Dose: 100 mls/hr Lactated Ringer's (Ringers, Lactated) Confirm Administered Dose 2,000 mls @ as directed .ROUTE .STK-MED ONE Stop: 05/11/18 09:17 Lidocaine HCl (Xylocaine-Mpf 1%) Confirm Administered Dose 4 mls @ as directed .ROUTE .STK-MED ONE Stop: 05/11/18 09:23 Sodium Chloride (Normal Saline) Confirm Administered Dose 100 mls @ as directed .ROUTE .STK-MED ONE Stop: 05/11/18 11:39 Lidocaine HCl (Xylocaine-Mpf 1%) Confirm Administered Dose 2 mls @ as directed .ROUTE .STK-MED ONE Stop: 05/11/18 11:57 Acetaminophen (Ofirmev) 100 mls @ 400 mls/hr IV ONETIME ONE Stop: 05/11/18 14:27 Last Admin: 05/11/18 14:29 Dose: 400 mls/hr Sodium Chloride (Normal Saline) 1,000 mls @ 25 mls/hr IV ASDIRECTED [place] Stop: 05/15/18 14:41 Last Infusion: 05/12/18 07:35 Dose: 25 mls/hr Sodium Chloride (Normal Saline) 250 mls @ 999 mls/hr IV .BOLUS ONE Stop: 05/12/18 07:22 Last Admin: 05/12/18 07:20 Dose: Not Given Ketamine HCl (Ketalar) Confirm Administered Dose 500 mg .ROUTE .STK-MED ONE Stop: 05/11/18 09:18 Lidocaine/Sodium Bicarbonate (Buffered Lidocaine 1% In Ns 8.4%) 0.25 ml IDERM ONETIME PRN PRN Reason: Prior to IV Start Stop: 05/11/18 18:00 Last Admin: 05/11/18 09:40 Dose: 0.25 ml Magnesium Hydroxide (Milk Of Magnesia) 30 ml PO BID PRN PRN Reason: Constipation Metoprolol Tartrate (Lopressor) Confirm Administered Dose 5 mg .ROUTE .STK-MED ONE Stop: 05/11/18 14:06 Metoprolol Tartrate (Lopressor) Confirm Administered Dose 5 mg .ROUTE .STK-MED ONE Stop: 05/11/18 14:07 Midazolam HCl (Versed 1 Mg/Ml) Confirm Administered Dose 4 mg .ROUTE .STK-MED ONE Stop: 05/11/18 09:18 Naloxone HCl (Narcan) Confirm Administered Dose 0.4 mg .ROUTE .STK-MED ONE Stop: 05/11/18 13:57 Last Admin: 05/11/18 18:37 Dose: Not Given Naloxone HCl (Narcan) 0.4 mg IVPUSH ONETIME PRN PRN Reason: Respiratory Depression Last Admin: 05/11/18 13:57 Dose: 0.4 mg Neostigmine Methylsulfate (Neostigmine) Confirm Administered Dose 5 mg .ROUTE .STK-MED ONE Stop: 05/11/18 13:21 Non-Formulary Medication (Ubidecarenone [Co Q-10]) 1 tab PO DAILY [facility] Ondansetron HCl (Zofran) Confirm Administered Dose 4 mg .ROUTE .STK-MED ONE Stop: 05/11/18 09:17 Ondansetron HCl (Zofran) 4 mg IVPUSH ONETIME PRN PRN Reason: Nausea/Vomiting Phenylephrine HCl (Reese-Synephrine) Confirm Administered Dose 10 mg .ROUTE .STK- MED ONE Stop: 05/11/18 11:39 Phenylephrine HCl (Phenylephrine In Ns 100 Mcg/Ml) Confirm Administered Dose 1 mg .ROUTE .STK-MED ONE Stop: 05/11/18 12:06 Propofol (Diprivan 20 Ml) Confirm Administered Dose 400 mg .ROUTE .STK-MED ONE Stop: 05/11/18 09:17 Ropivacaine (Naropin 0.5%) Confirm Administered Dose 30 ml .ROUTE .STK-MED ONE Stop: 05/11/18 10:48 Scopolamine (Transderm-Scop) 1.5 mg TOP ONETIME ONE Stop: 05/11/18 10:46 Last Admin: 05/11/18 10:43 Dose: 1.5 mg Sodium Chloride (Saline Flush) 10 ml FLUSH ASDIRECTED PRN PRN Reason: Keep Vein Open Stop: 05/11/18 18:00 Tranexamic Acid (Cyklokapron) Confirm Administered Dose 1,000 mg .ROUTE .STK- MED ONE Stop: 05/11/18 09:13 Last Admin: 05/11/18 12:46 Dose: 1,000 mg Tranexamic Acid (Cyklokapron) Confirm Administered Dose 1,000 mg .ROUTE .STK- MED ONE Stop: 05/11/18 12:45 Vancomycin HCl (Vancomycin) Confirm Administered Dose 1 gm .ROUTE .STK-MED ONE Stop: 05/11/18 09:13 Last Admin: 05/11/18 12:39 Dose: 1 gm - Exam Quality Assessment: Supplemental Oxygen, DVT Prophylaxis General: Alert, Oriented, Cooperative, No Acute Distress HEENT: Pupils Equal, Pupils Reactive, EOMI, Mucous Membr. Moist/[place] Neck: Supple, Trachea Midline, No JVD Lungs: Clear to Auscultation, Normal Respiratory Effort Cardiovascular: Regular Rate, Irregular Rhythm GI/Abdominal Exam: Normal Bowel Sounds, Soft, No Distention, No Abnormal Bruit, Tender (hernia location ) (Male) Exam: Deferred Back Exam: Normal Inspection, Full Range of Motion Extremities: No Pedal Edema, Normal Capillary Refill, Leg Pain, Limited Range of Motion, Other (Bandage on right leg. Cooling pack in place ) Peripheral Pulses: 2+: Radial (L), Radial (R), Dorsalis Pedis (L), Dorsalis Pedis (R) Skin: Warm, Dry, Intact Wound/Incisions: Dressing Dry and Intact, No Drainage Neurological: No New Focal Deficit Psy/Mental Status: Alert, Normal Affect, Normal Mood Consult PN Assessment/Plan POD#: 2 Procedures: Procedures ASSAY OF BLOOD/URIC ACID (05/22/17) ASSAY OF CALCIUM (04/23/17) ASSAY OF CALCIUM IN URINE (09/19/15) ASSAY OF MAGNESIUM (04/23/17) ASSAY OF NATRIURETIC PEPTIDE (04/23/17) ASSAY OF PARATHORMONE (05/22/17) ASSAY OF PROTEIN URINE (05/22/17) ASSAY OF TROPONIN QUANT (04/23/17) ASSAY OF URINE CREATININE (05/22/17) BLOOD CULTURE FOR BACTERIA (04/23/17) C-REACTIVE PROTEIN (04/23/17) CHEST X-RAY 1 VIEW FRONTAL (04/23/17) CHEST X-RAY 2VW FRONTAL&LATL (11/04/15) COMPLETE CBC W/AUTO DIFF WBC (12/18/17) COMPREHEN METABOLIC PANEL (04/23/17) CREATINE MB FRACTION (04/23/17) DXA BONE DENSITY AXIAL (05/15/17) ELECTROCARDIOGRAM TRACING (04/23/17) EMERGENCY DEPT VISIT (04/23/17) EMERGENCY DEPT VISIT (11/04/15) INFLUENZA ASSAY W/OPTIC (11/04/15) METABOLIC PANEL TOTAL CA (04/12/16) MICROBE SUSCEPTIBLE ANDREY (04/23/17) PROTHROMBIN TIME (04/23/17) RENAL FUNCTION PANEL (12/18/17) ROUTINE VENIPUNCTURE (12/18/17) THER/PROPH/DIAG INJ IV PUSH (04/23/17) URINALYSIS AUTO W/SCOPE (05/22/17) URINE BACTERIA CULTURE (04/23/17) URINE CULTURE/COLONY COUNT (04/23/17) VITAMIN D 25 HYDROXY (05/22/17) (1) S/P total knee arthroplasty SNOMED Code(s): 7252509400543, 851831156, 0850788775624 Code(s): Z96.659 - PRESENCE OF UNSPECIFIED ARTIFICIAL KNEE JOINT Priority: High Current Visit: Yes Qualifiers: Laterality: right Qualified Code(s): Z96.651 - Presence of right artificial knee joint (2) Osteoarthritis SNOMED Code(s): 189995888 Code(s): M19.90 - UNSPECIFIED OSTEOARTHRITIS, UNSPECIFIED SITE Priority: High Current Visit: Yes Qualifiers: Osteoarthritis location: knee Osteoarthritis type: primary Laterality: right Qualified Code(s): M17.11 - Unilateral primary osteoarthritis, right knee (3) Hypothyroid SNOMED Code(s): 64415222 Code(s): E03.9 - HYPOTHYROIDISM, UNSPECIFIED Priority: Low Current Visit : No Qualifiers: Hypothyroidism type: unspecified Qualified Code(s): E03.9 - Hypothyroidism , unspecified (4) Hypotonic bladder SNOMED Code(s): 442732877 Code(s): N31.2 - FLACCID NEUROPATHIC BLADDER, NOT ELSEWHERE CLASSIFIED Priority: Low Current Visit: No (5) Secondary hyperparathyroidism SNOMED Code(s): 11146810 Code(s): N25.81 - SECONDARY HYPERPARATHYROIDISM OF RENAL ORIGIN Priority: Low Current Visit: No (6) CAD (coronary artery disease) SNOMED Code(s): 76423858 Code(s): I25.10 - ATHSCL HEART DISEASE OF [place] CORONARY ARTERY W/O ANG PCTRS Priority: Medium Current Visit: No Qualifiers: Coronary Disease-Associated Artery/Lesion type: unspecified vessel or lesion type [place] vs. transplanted heart: unspecified whether [place] or transplanted heart Associated angina: angina presence unspecified Qualified Code(s): I25.10 - Atherosclerotic heart disease of [place] coronary artery without angina pectoris (7) S/P CABG (coronary artery bypass graft) SNOMED Code(s): 009211558, 708452525, 901563702 Code(s): Z95.1 - PRESENCE OF AORTOCORONARY BYPASS GRAFT Priority: Low Current Visit: No (8) Dyslipidemia SNOMED Code(s): 548095014 Code(s): E78.5 - HYPERLIPIDEMIA, UNSPECIFIED Priority: Low Current Visit : No (9) Chronic low back pain SNOMED Code(s): 186367343 Code(s): M54.5 - LOW BACK PAIN; G89.29 - OTHER CHRONIC PAIN Priority: Medium Current Visit: No Qualifiers: Back pain laterality: unspecified Sciatica presence: unspecified whether sciatica present Qualified Code(s): M54.5 - Low back pain; G89.29 - Other chronic pain (10) Barretts esophagus SNOMED Code(s): 806604944 Code(s): K22.70 - CARROLL'S ESOPHAGUS WITHOUT DYSPLASIA Priority: Low Current Visit: No Qualifiers: Carroll's esophagus type: with dysplasia of unspecified degree Qualified Code(s): K22.719 - Carroll's esophagus with dysplasia, unspecified; K22.71 - Carroll's esophagus with dysplasia (11) BPH (benign prostatic hyperplasia) SNOMED Code(s): 088665089 Code(s): N40.0 - BENIGN PROSTATIC HYPERPLASIA WITHOUT LOWER URINRY TRACT SYMP Priority: Low Current Visit: No Qualifiers: Lower urinary tract symptom presence: unspecified whether lower urinary tract symptoms present Qualified Code(s): N40.0 - Benign prostatic hyperplasia without lower urinary tract symptoms (12) CKD (chronic kidney disease) stage 3, GFR 30-59 ml/min SNOMED Code(s): 219193764 Code(s): N18.3 - CHRONIC KIDNEY DISEASE, STAGE 3 (MODERATE) Priority: Medium Current Visit: Yes (13) Neuropathy SNOMED Code(s): 162413026 Code(s): G62.9 - POLYNEUROPATHY, UNSPECIFIED Priority: Medium Current Visit: Yes (14) Hypoxia SNOMED Code(s): 628101100 Code(s): R09.02 - HYPOXEMIA Priority: High Current Visit: Yes Problem List Initiated/Reviewed/Updated: Yes My Orders Last 24 Hours: My Active Orders 05/12/18 06:38 Patient Status [ADT] Routine 05/12/18 12:44 Consult to Respiratory Therapy [Respiratory Care Assess and Treatment] [CONS] Routine 05/12/18 14:15 Magnesium Rep Pharmacy to Dose [Pharmacy to Dose - Magnesium Replacement] 0 dose .XX ASDIRECTED PRN Potassium Rep Pharmacy to Dose [Pharmacy to Dose - Potassium Replacement] 0 dose .XX ASDIRECTED PRN 05/12/18 20:00 Overnight Pulse Oximetry [RC] Click to Edit 05/13/18 05:30 CBC WITH AUTO DIFF [HEME] AM 05/14/18 05:11 BASIC METABOLIC PANEL,BMP [CHEM] AM CBC WITH AUTO DIFF [HEME] AM MAGNESIUM [CHEM] AM 05/15/18 05:11 BASIC METABOLIC PANEL,BMP [CHEM] AM CBC WITH AUTO DIFF [HEME] AM MAGNESIUM [CHEM] AM 05/16/18 05:11 BASIC METABOLIC PANEL,BMP [CHEM] AM CBC WITH AUTO DIFF [HEME] AM MAGNESIUM [CHEM] AM Plan: I/P: Acute: S/P right total knee arthroplasty - post-operative day 2 -DVT prophylaxis and pain management per primary care team -PT/OT -IS/RT -Monitor oxygen saturation -Titrate oxygen as needed -Vital signs stable -Monitor labs -Pre-operative Hgb was 14.6-->12.4; Now 11.5 -Pre-operative GFR was 42.2-->37; Now 35 Osteoarthritis of right knee -Pain management per primary care team Post-operative hypoxia/respiratory depression -2/2 oversedation, suspected underlying health issues -Was given Narcan in PACU with good response -CPAP overnight - continue at home -Still unable to wean off O2 -Appears to have some components of sleep apnea. Strongly recommend PCP f/u for sleep study/evaluation -Overnight pulse ox study - Saturations dropped to 47% -Needs home oxygen at discharge -RT consult Chronic: CAD with CABG in 2016 Dyslipidemia Obesity Chronic lower back pain OA Barretts disease BPH CKD Stage 3 Depression Secondary hyperparathyroidism [place] Hypotonic bladder Hypothyroid Neuropathy Plan: CM for discharge planning GI prophylaxis Home medications as indicated Other orders as listed above Routine AM labs He is a full code. His PCP is Dr. Queen from [facility] Neo did ok. He was qualified for oxygen prior to discharge and will be sent home on this. He will need CPAP as directed. He needs a sleep study and should follow-up with his PCP for this. He may also benefit from a PFT. Both should be obtained after he is off pain medications and back to his normal function. Her denies SOB. 250 mL fluid bolus was given prior to discharge as his GFR is slightly worse today. He is followed by Dr. Raducu for nephrology. He should follow-up with his PCP within 7-10 days of discharge. Otherwise he is doing well post-surgically. He has been ambulating and working with therapies. He has urinated. Pain is controlled and he denies any other symptoms. He should continue to utilize his IS. Labs and vital signs are stable. He will be discharged today to [facility]. Thank you for allowing us to participate in the care of this patient!!
[2018-05-13] MEDS ORDERED: Sodium Chloride 0.9% 250 ML IV ONE (07:41)
[2018-05-13] MEDS: Fenofibrate Nanocrystallized 145 MG Tab PO SCH (08:19)
[2018-05-13] MEDS: Pregabalin 75 MG Cap PO SCH (08:20)
[2018-05-13] MEDS: Folic Acid 1 MG Tab PO SCH (08:22)
[2018-05-13] MEDS: Docusate Sodium 100 MG Cap PO SCH (08:22)
[2018-05-13] MEDS: Multivitamins,Therapeutic Tab PO SCH (08:22)
[2018-05-13] MEDS: Finasteride 5 MG Tab PO SCH (08:22)
[2018-05-13] MEDS: Aspirin 325 MG Tab.EC PO SCH (08:22)
[2018-05-13] MEDS: Cholecalciferol (Vitamin D3) 1,000 Unit Tab PO SCH (08:23)
[2018-05-13] MEDS: Levothyroxine 112 MCG Tab PO SCH (08:23)
[2018-05-13] MEDS: Metoprolol Tartrate 25 MG Tab PO SCH (08:23)
[2018-05-13] MEDS: Pantoprazole 40 MG Tab.CR PO SCH (08:24)
[2018-05-13] MEDS ORDERED: Amoxicillin 250 MG Cap PO SCH (09:00)
--- NOTE | 2018-05-13 11:26 | PCM.SURGPN ---
- General Info POD#: 2 Functional Status: Reports: Pain Controlled, Tolerating Diet, Ambulating, Urinating, Incentive Spirometry, Other (The pt states he has "some pain", however, it is tolerable.) - Patient Data Vitals - Most Recent: Last Vital Signs Temp 98.4 F 05/13/18 07:30 Pulse 94 05/13/18 08:23 Resp 18 05/13/18 07:30 BP 124/77 05/13/18 08:23 Pulse Ox 94 L 05/13/18 10:48 Weight - Most Recent: 236 lb I&O - Last 24 Hours: Intake & Output 05/12/18 05/13/18 05/13/18 22:59 06:59 14:59 Intake Total 1739 300 120 Output Total 500 600 Balance 1239 -300 120 Lab Results Last 24 Hrs: Laboratory Results - last 24 hr 05/12/18 05/13/18 05/13/18 Range/Units 05:30 05:30 05:30 WBC 9.05 (4.23-9.07) K/mm3 RBC 4.05 L (4.63-6.08) M/mm3 Hgb 11.5 L (13.7-17.5) gm/L Hct 36.3 L (40.1-51.0) % MCV 89.6 (79.0-92.2) fl MCH 28.4 (25.7-32.2) pg MCHC 31.7 L (32.2-35.5) g/dl RDW Std Deviation 48.3 H (35.1-43.9) fL Plt Count 169 (163-337) K/mm3 MPV 10.5 (9.4-12.3) fl Neut % (Auto) 61.7 (34.0-67.9) % Lymph % (Auto) 19.9 L (21.8-53.1) % [place] % (Auto) 16.1 H (5.3-12.2) % Eos % (Auto) 1.4 (0.8-7.0) Baso % (Auto) 0.6 (0.1-1.2) % Neut # (Auto) 5.58 H (1.78-5.38) K/mm3 Lymph # (Auto) 1.80 (1.32-3.57) K/mm3 [place] # (Auto) 1.46 H (0.30-0.82) K/mm3 Eos # (Auto) 0.13 (0.04-0.54) K/mm3 Baso # (Auto) 0.05 (0.01-0.08) K/mm3 Manual Slide Review Normal smear Sodium 131 L (136-145) mEq/L Potassium 4.6 (3.5-5.1) mEq/L Chloride 98 (98-107) mEq/L Carbon Dioxide 29 (21-32) mEq/L Anion Gap 8.6 (5-15) BUN 27 H (7-18) mg/dL Creatinine 1.9 H (0.7-1.3) mg/dL Est Cr Clr Drug Dosing 31.50 mL/min Estimated GFR (MDRD) 35 (>60) mL/min BUN/Creatinine Ratio 14.2 (14-18) Glucose 143 H (83-115) mg/dL Calcium 9.4 (8.5-10.1) mg/dL Magnesium 2.5 H 2.4 (1.8-2.4) mg/dl Med Orders - Current: Current Medications Hydrocodone Bitart/Acetaminophen ([place] 325-5 Mg) 1 - 2 tab PO Q4H PRN PRN Reason: Pain Last Admin: 05/13/18 06:11 Dose: 1 tab Amoxicillin (Amoxil) 250 mg PO DAILY [facility] Last Admin: 05/13/18 08:58 Dose: 250 mg Aspirin (Ecotrin) 325 mg PO BID [facility] Last Admin: 05/13/18 08:22 Dose: 325 mg Bisacodyl (Dulcolax) 5 mg PO DAILY PRN PRN Reason: Constipation Cholecalciferol (Vitamin D3) 4,000 units PO DAILY [facility] Last Admin: 05/13/18 08:23 Dose: 4,000 units Citalopram Hydrobromide (Celexa) 20 mg PO BEDTIME [facility] Last Admin: 05/12/18 20:03 Dose: 20 mg Docusate Sodium (Colace) 100 mg PO BID [facility] Last Admin: 05/13/18 08:22 Dose: 100 mg Fenofibrate (Tricor) 145 mg PO DAILY [facility] Last Admin: 05/13/18 08:19 Dose: 145 mg Finasteride (Proscar) 5 mg PO DAILY [facility] Last Admin: 05/13/18 08:22 Dose: 5 mg Folic Acid (Folic Acid) 1 mg PO DAILY [facility] Last Admin: 05/13/18 08:22 Dose: 1 mg Furosemide (Lasix) 40 mg PO Q48H [facility] Last Admin: 05/11/18 18:12 Dose: 40 mg Hydromorphone HCl (Dilaudid) 0.2 mg IVPUSH Q2H PRN PRN Reason: Pain Levothyroxine Sodium (Levothyroxine) 112 mcg PO DAILY [facility] Last Admin: 05/13/18 08:23 Dose: 112 mcg Magnesium Sulfate (Pharmacy To Dose - Magnesium Replacement) 0 dose .XX ASDIRECTED PRN PRN Reason: RX TO DOSE MAG Metoprolol Tartrate (Lopressor) 25 mg PO BID [facility] Last Admin: 05/13/18 08:23 Dose: 25 mg Miscellaneous Information (Remove Patch) 0 ea TRDERM ONETIME ONE Stop: 05/14/18 10:46 Multivitamins (Thera) 1 each PO DAILY [facility] Last Admin: 05/13/18 08:22 Dose: 1 each Naloxone HCl (Narcan) 0.1 mg IVPUSH Q5M PRN PRN Reason: Oversedation Nitroglycerin (Nitrostat) 0.4 mg SL Q5M PRN PRN Reason: Chest Pain Ondansetron HCl (Zofran) 4 mg IVPUSH Q6H PRN PRN Reason: Nausea/Vomiting Pantoprazole Sodium (Protonix) 40 mg PO DAILY [facility] Last Admin: 05/13/18 08:24 Dose: 40 mg Potassium Chloride (Pharmacy To Dose - Potassium Replacement) 0 dose .XX ASDIRECTED PRN PRN Reason: RX TO DOSE K Pregabalin (Lyrica) 150 mg PO BID [facility] Last Admin: 05/13/18 08:20 Dose: 150 mg Senna (Senna) 8.6 mg PO BID PRN PRN Reason: Constipation Simvastatin (Zocor) 40 mg PO BEDTIME [facility] Last Admin: 05/12/18 20:03 Dose: 40 mg Tamsulosin HCl (Flomax) 0.4 mg PO BEDTIME [facility] Last Admin: 05/12/18 20:04 Dose: 0.4 mg Discontinued Medications Artificial Tears (Artificial Tears Ointment) Confirm Administered Dose 3.5 gm .ROUTE .STK-MED ONE Stop: 05/11/18 09:34 Bupivacaine HCl (Marcaine 0.25%) Confirm Administered Dose 30 ml .ROUTE .STK- MED ONE Stop: 05/11/18 09:13 Last Admin: 05/11/18 12:35 Dose: 20 ml Cefazolin Sodium (Ancef) Confirm Administered Dose 2 gm .ROUTE .STK-MED ONE Stop: 05/11/18 09:13 Last Admin: 05/11/18 12:30 Dose: 2 gm Cefazolin Sodium (Ancef) Confirm Administered Dose 2 gm .ROUTE .STK-MED ONE Stop: 05/11/18 09:24 Epinephrine HCl 0.3 mg/Cefuroxime Sodium 750 mg/Ketorolac Tromethamine 30 mg/ Sodium Chloride 28.7 ml 0 mg .XX ONETIME ONE Stop: 05/11/18 11:01 Last Admin: 05/11/18 18:38 Dose: Not Given Denosumab (Prolia) 60 mg .XX ASDIRECTED [place] Dexamethasone (Dexamethasone) Confirm Administered Dose 8 mg .ROUTE .STK-MED ONE Stop: 05/11/18 11:44 Diphenhydramine HCl (Benadryl) 25 mg IVPUSH Q6H PRN PRN Reason: Pruritis Ephedrine Sulfate (Ephedrine In Ns) Confirm Administered Dose 25 mg .ROUTE .STK- MED ONE Stop: 05/11/18 12:06 Epinephrine HCl (Adrenalin) Confirm Administered Dose 1 mg .ROUTE .STK-MED ONE Stop: 05/11/18 10:49 Famotidine (Pepcid) Confirm Administered Dose 20 mg .ROUTE .STK-MED ONE Stop: 05/11/18 10:44 Fentanyl (Sublimaze) Confirm Administered Dose 100 mcg .ROUTE .STK-MED ONE Stop: 05/11/18 09:16 Fentanyl (Sublimaze) Confirm Administered Dose 100 mcg .ROUTE .STK-MED ONE Stop: 05/11/18 12:53 Fentanyl (Sublimaze) 50 mcg IVPUSH Q5M PRN PRN Reason: Pain Stop: 05/11/18 23:00 Last Admin: 05/11/18 13:55 Dose: 50 mcg Glycopyrrolate () Confirm Administered Dose 1 mg .ROUTE .STK-MED ONE Stop: 05/11/18 13:21 Hydromorphone HCl (Dilaudid) Confirm Administered Dose 0.5 mg .ROUTE .STK-MED ONE Stop: 05/11/18 11:18 Hydromorphone HCl (Dilaudid) 0.5 mg IVPUSH ASDIRECTED PRN PRN Reason: Severe Pain Stop: 05/11/18 23:00 Lactated Ringer's (Ringers, Lactated) 1,000 mls @ 125 mls/hr IV ASDIRECTED [facility] Stop: 05/11/18 23:00 Last Admin: 05/11/18 09:40 Dose: 125 mls/hr Cefazolin Sodium/Dextrose 2 gm (/ Premix) 50 mls @ 100 mls/hr IV Q8H [place] Stop: 05/12/18 09:59 Last Admin: 05/12/18 09:43 Dose: 100 mls/hr Lactated Ringer's (Ringers, Lactated) Confirm Administered Dose 2,000 mls @ as directed .ROUTE .STK-MED ONE Stop: 05/11/18 09:17 Lidocaine HCl (Xylocaine-Mpf 1%) Confirm Administered Dose 4 mls @ as directed .ROUTE .STK-MED ONE Stop: 05/11/18 09:23 Sodium Chloride (Normal Saline) Confirm Administered Dose 100 mls @ as directed .ROUTE .STK-MED ONE Stop: 05/11/18 11:39 Lidocaine HCl (Xylocaine-Mpf 1%) Confirm Administered Dose 2 mls @ as directed .ROUTE .STK-MED ONE Stop: 05/11/18 11:57 Acetaminophen (Ofirmev) 100 mls @ 400 mls/hr IV ONETIME ONE Stop: 05/11/18 14:27 Last Admin: 05/11/18 14:29 Dose: 400 mls/hr Sodium Chloride (Normal Saline) 1,000 mls @ 25 mls/hr IV ASDIRECTED [facility] Stop: 05/15/18 14:41 Last Infusion: 05/12/18 07:35 Dose: 25 mls/hr Sodium Chloride (Normal Saline) 250 mls @ 999 mls/hr IV .BOLUS ONE Stop: 05/12/18 07:22 Last Admin: 05/12/18 07:20 Dose: Not Given Sodium Chloride (Normal Saline) 250 mls @ 999 mls/hr IV .BOLUS ONE Stop: 05/13/18 07:56 Last Admin: 05/13/18 08:18 Dose: 999 mls/hr Ketamine HCl (Ketalar) Confirm Administered Dose 500 mg .ROUTE .STK-MED ONE Stop: 05/11/18 09:18 Lidocaine/Sodium Bicarbonate (Buffered Lidocaine 1% In Ns 8.4%) 0.25 ml IDERM ONETIME PRN PRN Reason: Prior to IV Start Stop: 05/11/18 18:00 Last Admin: 05/11/18 09:40 Dose: 0.25 ml Magnesium Hydroxide (Milk Of Magnesia) 30 ml PO BID PRN PRN Reason: Constipation Metoprolol Tartrate (Lopressor) Confirm Administered Dose 5 mg .ROUTE .STK-MED ONE Stop: 05/11/18 14:06 Metoprolol Tartrate (Lopressor) Confirm Administered Dose 5 mg .ROUTE .STK-MED ONE Stop: 05/11/18 14:07 Midazolam HCl (Versed 1 Mg/Ml) Confirm Administered Dose 4 mg .ROUTE .STK-MED ONE Stop: 05/11/18 09:18 Naloxone HCl (Narcan) Confirm Administered Dose 0.4 mg .ROUTE .STK-MED ONE Stop: 05/11/18 13:57 Last Admin: 05/11/18 18:37 Dose: Not Given Naloxone HCl (Narcan) 0.4 mg IVPUSH ONETIME PRN PRN Reason: Respiratory Depression Last Admin: 05/11/18 13:57 Dose: 0.4 mg Neostigmine Methylsulfate (Neostigmine) Confirm Administered Dose 5 mg .ROUTE .STK-MED ONE Stop: 05/11/18 13:21 Non-Formulary Medication (Ubidecarenone [Co Q-10]) 1 tab PO DAILY [facility] Ondansetron HCl (Zofran) Confirm Administered Dose 4 mg .ROUTE .STK-MED ONE Stop: 05/11/18 09:17 Ondansetron HCl (Zofran) 4 mg IVPUSH ONETIME PRN PRN Reason: Nausea/Vomiting Phenylephrine HCl (Reese-Synephrine) Confirm Administered Dose 10 mg .ROUTE .STK- MED ONE Stop: 05/11/18 11:39 Phenylephrine HCl (Phenylephrine In Ns 100 Mcg/Ml) Confirm Administered Dose 1 mg .ROUTE .STK-MED ONE Stop: 05/11/18 12:06 Propofol (Diprivan 20 Ml) Confirm Administered Dose 400 mg .ROUTE .STK-MED ONE Stop: 05/11/18 09:17 Ropivacaine (Naropin 0.5%) Confirm Administered Dose 30 ml .ROUTE .STK-MED ONE Stop: 05/11/18 10:48 Scopolamine (Transderm-Scop) 1.5 mg TOP ONETIME ONE Stop: 05/11/18 10:46 Last Admin: 05/11/18 10:43 Dose: 1.5 mg Sodium Chloride (Saline Flush) 10 ml FLUSH ASDIRECTED PRN PRN Reason: Keep Vein Open Stop: 05/11/18 18:00 Tranexamic Acid (Cyklokapron) Confirm Administered Dose 1,000 mg .ROUTE .STK- MED ONE Stop: 05/11/18 09:13 Last Admin: 05/11/18 12:46 Dose: 1,000 mg Tranexamic Acid (Cyklokapron) Confirm Administered Dose 1,000 mg .ROUTE .STK- MED ONE Stop: 05/11/18 12:45 Vancomycin HCl (Vancomycin) Confirm Administered Dose 1 gm .ROUTE .STK-MED ONE Stop: 05/11/18 09:13 Last Admin: 05/11/18 12:39 Dose: 1 gm - Exam Wound/Incisions: Dressing Dry and Intact General: Alert, Cooperative, No Acute Distress Lungs: Normal Respiratory Effort Extremities: Other (NVS intact for RLE. Gomez's negative for BLE.) - Problem List Review Problem List Initiated/Reviewed/Updated: Yes - My Orders Last 24 Hours: Active Orders 24 hr Category Date Time Status Overnight Pulse Oximetry [RC] Click to Edit Care 05/12/18 20:00 Active Ready for Discharge [RC] PER UNIT ROUTINE Care 05/13/18 07:01 Active Consult to Case Management/Health And Safety Tech [CONS] Cons 05/13/18 08:43 Active Routine Consult to Respiratory Therapy [Respiratory Care Assess Cons 05/12/18 12:44 Active and Treatment] [CONS] Routine BASIC METABOLIC PANEL,BMP [CHEM] AM Lab 05/14/18 05:11 Ordered BASIC METABOLIC PANEL,BMP [CHEM] AM Lab 05/15/18 05:11 Ordered BASIC METABOLIC PANEL,BMP [CHEM] AM Lab 05/16/18 05:11 Ordered CBC WITH AUTO DIFF [HEME] AM Lab 05/14/18 05:11 Ordered CBC WITH AUTO DIFF [HEME] AM Lab 05/15/18 05:11 Ordered CBC WITH AUTO DIFF [HEME] AM Lab 05/16/18 05:11 Ordered MAGNESIUM [CHEM] AM Lab 05/14/18 05:11 Ordered MAGNESIUM [CHEM] AM Lab 05/15/18 05:11 Ordered MAGNESIUM [CHEM] AM Lab 05/16/18 05:11 Ordered Amoxicillin [Amoxil] Med 05/13/18 09:00 Active 250 mg PO DAILY Magnesium Rep Pharmacy to Dose [Pharmacy to Dose - Med 05/12/18 14:15 Active Magnesium Replacement] 0 dose .XX ASDIRECTED PRN Potassium Rep Pharmacy to Dose [Pharmacy to Dose - Med 05/12/18 14:15 Active Potassium Replacement] 0 dose .XX ASDIRECTED PRN Remove Patch Med 05/14/18 10:45 Once 0 ea TRDERM ONETIME ONE Simvastatin [Zocor] Med 05/12/18 21:00 Active 40 mg PO BEDTIME Medication Orders Hydrocodone Bitart/Acetaminophen ([place] 325-5 Mg) 1 - 2 tab PO Q4H PRN PRN Reason: Pain Last Admin: 05/13/18 06:11 Dose: 1 tab Admin: 05/12/18 23:48 Dose: 2 tab Admin: 05/12/18 19:40 Dose: 2 tab Admin: 05/12/18 10:12 Dose: 2 tab Admin: 05/12/18 05:25 Dose: 2 tab Admin: 05/11/18 22:09 Dose: 1 tab Admin: 05/11/18 17:47 Dose: 1 tab Amoxicillin (Amoxil) 250 mg PO DAILY [facility] Last Admin: 05/13/18 08:58 Dose: 250 mg Aspirin (Ecotrin) 325 mg PO BID [facility] Last Admin: 05/13/18 08:22 Dose: 325 mg Admin: 05/12/18 20:03 Dose: 325 mg Admin: 05/12/18 08:17 Dose: 325 mg Bisacodyl (Dulcolax) 5 mg PO DAILY PRN PRN Reason: Constipation Cholecalciferol (Vitamin D3) 4,000 units PO DAILY [facility] Last Admin: 05/13/18 08:23 Dose: 4,000 units Admin: 05/12/18 08:17 Dose: 4,000 units Citalopram Hydrobromide (Celexa) 20 mg PO BEDTIME [facility] Last Admin: 05/12/18 20:03 Dose: 20 mg Admin: 05/11/18 20:04 Dose: 20 mg Docusate Sodium (Colace) 100 mg PO BID [facility] Last Admin: 05/13/18 08:22 Dose: 100 mg Admin: 05/12/18 20:03 Dose: 100 mg Admin: 05/12/18 08:16 Dose: 100 mg Admin: 05/11/18 20:04 Dose: 100 mg Fenofibrate (Tricor) 145 mg PO DAILY [facility] Last Admin: 05/13/18 08:19 Dose: 145 mg Admin: 05/12/18 08:17 Dose: 145 mg Finasteride (Proscar) 5 mg PO DAILY [facility] Last Admin: 05/13/18 08:22 Dose: 5 mg Admin: 05/12/18 08:16 Dose: 5 mg Folic Acid (Folic Acid) 1 mg PO DAILY [facility] Last Admin: 05/13/18 08:22 Dose: 1 mg Admin: 05/12/18 08:16 Dose: 1 mg Furosemide (Lasix) 40 mg PO Q48H [facility] Last Admin: 05/11/18 18:12 Dose: 40 mg Hydromorphone HCl (Dilaudid) 0.2 mg IVPUSH Q2H PRN PRN Reason: Pain Levothyroxine Sodium (Levothyroxine) 112 mcg PO DAILY [facility] Last Admin: 05/13/18 08:23 Dose: 112 mcg Admin: 05/12/18 08:16 Dose: 112 mcg Magnesium Sulfate (Pharmacy To Dose - Magnesium Replacement) 0 dose .XX ASDIRECTED PRN PRN Reason: RX TO DOSE MAG Metoprolol Tartrate (Lopressor) 25 mg PO BID [facility] Last Admin: 05/13/18 08:23 Dose: 25 mg Admin: 05/12/18 20:03 Dose: 25 mg Admin: 05/12/18 08:16 Dose: 25 mg Admin: 05/11/18 20:04 Dose: 25 mg Miscellaneous Information (Remove Patch) 0 ea TRDERM ONETIME ONE Stop: 05/14/18 10:46 Multivitamins (Thera) 1 each PO DAILY [facility] Last Admin: 05/13/18 08:22 Dose: 1 each Admin: 05/12/18 08:17 Dose: 1 each Naloxone HCl (Narcan) 0.1 mg IVPUSH Q5M PRN PRN Reason: Oversedation Nitroglycerin (Nitrostat) 0.4 mg SL Q5M PRN PRN Reason: Chest Pain Ondansetron HCl (Zofran) 4 mg IVPUSH Q6H PRN PRN Reason: Nausea/Vomiting Pantoprazole Sodium (Protonix) 40 mg PO DAILY [facility] Last Admin: 05/13/18 08:24 Dose: 40 mg Admin: 05/12/18 08:17 Dose: 40 mg Potassium Chloride (Pharmacy To Dose - Potassium Replacement) 0 dose .XX ASDIRECTED PRN PRN Reason: RX TO DOSE K Pregabalin (Lyrica) 150 mg PO BID [facility] Last Admin: 05/13/18 08:20 Dose: 150 mg Admin: 05/12/18 20:03 Dose: 150 mg Admin: 05/12/18 08:17 Dose: 150 mg Admin: 05/11/18 20:04 Dose: 150 mg Senna (Senna) 8.6 mg PO BID PRN PRN Reason: Constipation Simvastatin (Zocor) 40 mg PO BEDTIME [facility] Last Admin: 05/12/18 20:03 Dose: 40 mg Tamsulosin HCl (Flomax) 0.4 mg PO BEDTIME [facility] Last Admin: 05/12/18 20:04 Dose: 0.4 mg Admin: 05/11/18 20:04 Dose: 0.4 mg - Assessment Assessment (Free Text/Narrative):: POD#2 - right TKA - Plan Plan (Free Text/Narrative):: 1. Discharge to [facility] today if Hospitalist service agrees. 2. 325mg PO ASA BID, frequent mobility, TEDs. 3. Outpatient P.T. 4. Medical management per Hospitalist service. The pt's case was discussed with Dr. Iniguez.
--- NOTE | 2018-05-13 11:29 | PCM.DCSUM1 ---
Discharge Summary - Hospital Course Brief History: Neo is a 78 yo male who underwent right TKA with Dr. Iniguez on . The procedure was completed under general anesthesia. The pt tolerated the procedure well, however, was noted to have respiratory depression and low O2 sats in PACU. The pt's status improvevd with intervention and the pt was admitted to ICU for continued monitoring. Medical management was provided by the Hospitalist service. The patient had overnight oximetry completed to evaluate for use of O2 at home. The pt's Hgb on POD#1 was 12.4. On POD#1, 325mg ASA BID was initiated for VTE prophylaxis. SCDs and TEDs were also ordered. A Mepilex dressing was placed at the incision site at the time of surgery and remained clean and dry. The pt participated in P.T. and O.T. and progressed well. The pt was allowed to WBAT. On POD#2, the pt was deemed appropriate to discharge to [facility]. Diagnosis: Stroke: No - Discharge Data Discharge Date: 05/13/18 Discharge Disposition: DC/Tfer to Other 70 Condition: Good - Patient Summary/Data Consults: Consultations 05/11/18 06:56 OT Evaluation and Treatment [CONS] Routine PT Evaluation and Treatment [CONS] Routine 05/11/18 13:42 Consult to Physician [CONS] Routine 05/12/18 12:44 Consult to Respiratory Therapy [Respiratory Care Assess and Treatment] [CONS] Routine 05/13/18 08:43 Consult to Case Management/Shift Supervisor Melting [CONS] Routine - Patient Instructions Diet: Usual Diet as Tolerated Activity: Apply Ice, As Tolerated, Elevate Extremity, Full Weight Bearing Driving: Do Not Drive Showering/Bathing: May Shower Wound/Incision Care: Keep Operative Site/Wound Site Clean and Dry, Do NOT Change Dressing Notify Provider of: Fever, Increased Pain, Swelling and Redness, Drainage, Nausea and/or Vomiting Other/Special Instructions: Please get up and moving around EVERY HOUR while awake. This helps to prevent blood clots. Have help with mobility as needed. Please take 325mg aspirin twice daily - this also helps to prevent blood clots. The medication is being used for blood clot prevention and not for pain control, so please use the medication twice daily as directed. Please wear the BEENA hose during the day and you may remove them at night. Please schedule for P.T. Complete the P.T. exercises and stretches that were instructed in the Hospital. Please use the pain medication as needed. The medication may cause drowsiness and/or constipation. You could use a stool softener like docusate sodium or Colace 100mg twice daily and/or a laxative like Miralax daily for constipation. Contact your primary care provider for further instructions if you are constipated. Try to wean from use of the pain medication as soon as able. Please do not use other medications that may cause drowsiness (other pain medications, anxiety pills, sleeping pills, allergy medications that cause drowsiness) while using the pain medication. Please do not use alcohol while using the pain medication. Use the incentive spirometer often. Please place ice to the knee often. Please elevate the limb to decrease swelling. Keep the Mepilex dressing in place until follow-up. Please notify the Clinic if the dressing is saturated or rolls. Increase protein intake in your diet as this helps with healing. If you are a diabetic, please closely monitor your blood sugars and notify your primary care provider of your values. Elevated blood sugars increases the risk of infection. Follow-up with your primary doctor within 7-10 days. Please call [phone] with questions or concerns. Continue oxygen use at home as directed by respiratory therapy. - Discharge Plan *PRESCRIPTION DRUG MONITORING PROGRAM REVIEWED*: No *COPY OF PRESCRIPTION DRUG MONITORING REPORT IN PATIENT TARI: No Prescriptions/Med Rec: Acetaminophen/HYDROcodone [[place] 325-5 MG] 1 - 2 tab PO Q6H PRN #60 tablet PRN Reason: Pain Aspirin [Ecotrin] 325 mg PO BID #84 tab.ec Home Medications: Home Meds Escitalopram [Lexapro] 10 mg PO BEDTIME 04/23/17 [History] Fenofibrate Nanocrystallized [Fenofibrate] 145 mg PO DAILY 04/23/17 [History] Furosemide [Lasix] 40 mg PO Q48H 04/23/17 [History] Metoprolol Tartrate [Lopressor] 25 mg PO BID 04/23/17 [History] Pantoprazole Sodium [Protonix] 40 mg PO DAILY 04/23/17 [History] Pregabalin [Lyrica] 150 mg PO BID 04/23/17 [History] Tamsulosin [Flomax] 0.4 mg PO BEDTIME 04/23/17 [History] Ubidecarenone [Co Q-10] 1 tab PO DAILY 04/23/17 [History] Cholecalciferol (Vitamin D3) [Vitamin D3] 4,000 units PO DAILY 05/08/18 [History ] Denosumab [Prolia] 60 mg SQ ASDIRECTED 05/08/18 [History] Folic Acid 1 mg PO DAILY 05/08/18 [History] Levothyroxine Sodium [Synthroid] 112 mcg PO DAILY 05/08/18 [History] Nitroglycerin [Nitrostat] 0.4 mg PO Q5M PRN 05/08/18 [History] Simvastatin [Zocor] 40 mg PO DAILY 05/08/18 [History] Amoxicillin 250 mg PO DAILY 05/11/18 [History] Finasteride [Proscar] 5 mg PO DAILY 05/11/18 [History] Multivitamin/Iron/Folic Acid [Centrum Adults Tablet] 1 tab PO DAILY 05/11/18 [ History] Acetaminophen/HYDROcodone [[place] 325-5 MG] 1 - 2 tab PO Q6H PRN #60 tablet 05/13 [Rx] Aspirin [Ecotrin] 325 mg PO BID #84 tab.ec 05/13/18 [Rx] Bisacodyl [Dulcolax] 5 mg PO DAILY PRN tablet 05/13/18 [Rx] Docusate Sodium [Colace] 100 mg PO BID cap 05/13/18 [Rx] Magnesium Rep Pharmacy to Dose [Pharmacy to Dose - Magnesium Replacement] 0 dose .XX ASDIRECTED PRN each 05/13/18 [Rx] Potassium Rep Pharmacy to Dose [Pharmacy to Dose - Potassium Replacement] 0 dose .XX ASDIRECTED PRN each 05/13/18 [Rx] Sennosides [Senna] 8.6 mg PO BID PRN tablet 05/13/18 [Rx] Referrals: Camila Romero PA-C [Physician [employer]er] - - Patient Data Vitals - Most Recent: Last Vital Signs Temp 98.4 F 05/13/18 07:30 Pulse 94 05/13/18 08:23 Resp 18 05/13/18 07:30 BP 124/77 05/13/18 08:23 Pulse Ox 94 L 05/13/18 10:48 Weight - Most Recent: 236 lb I&O - Last 24 hours: Intake & Output 05/12/18 05/13/18 05/13/18 22:59 06:59 14:59 Intake Total 1739 300 120 Output Total 500 600 Balance 1239 -300 120 Lab Results - Last 24 hrs: Laboratory Results - last 24 hr 05/12/18 05/13/18 05/13/18 Range/Units 05:30 05:30 05:30 WBC 9.05 (4.23-9.07) K/mm3 RBC 4.05 L (4.63-6.08) M/mm3 Hgb 11.5 L (13.7-17.5) gm/L Hct 36.3 L (40.1-51.0) % MCV 89.6 (79.0-92.2) fl MCH 28.4 (25.7-32.2) pg MCHC 31.7 L (32.2-35.5) g/dl RDW Std Deviation 48.3 H (35.1-43.9) fL Plt Count 169 (163-337) K/mm3 MPV 10.5 (9.4-12.3) fl Neut % (Auto) 61.7 (34.0-67.9) % Lymph % (Auto) 19.9 L (21.8-53.1) % Jack % (Auto) 16.1 H (5.3-12.2) % Eos % (Auto) 1.4 (0.8-7.0) Baso % (Auto) 0.6 (0.1-1.2) % Neut # (Auto) 5.58 H (1.78-5.38) K/mm3 Lymph # (Auto) 1.80 (1.32-3.57) K/mm3 Jack # (Auto) 1.46 H (0.30-0.82) K/mm3 Eos # (Auto) 0.13 (0.04-0.54) K/mm3 Baso # (Auto) 0.05 (0.01-0.08) K/mm3 Manual Slide Review Normal smear Sodium 131 L (136-145) mEq/L Potassium 4.6 (3.5-5.1) mEq/L Chloride 98 (98-107) mEq/L Carbon Dioxide 29 (21-32) mEq/L Anion Gap 8.6 (5-15) BUN 27 H (7-18) mg/dL Creatinine 1.9 H (0.7-1.3) mg/dL Est Cr Clr Drug Dosing 31.50 mL/min Estimated GFR (MDRD) 35 (>60) mL/min BUN/Creatinine Ratio 14.2 (14-18) Glucose 143 H (83-115) mg/dL Calcium 9.4 (8.5-10.1) mg/dL Magnesium 2.5 H 2.4 (1.8-2.4) mg/dl Med Orders - Current: Current Medications Hydrocodone Bitart/Acetaminophen ([place] 325-5 Mg) 1 - 2 tab PO Q4H PRN PRN Reason: Pain Last Admin: 05/13/18 06:11 Dose: 1 tab Amoxicillin (Amoxil) 250 mg PO DAILY [facility] Last Admin: 05/13/18 08:58 Dose: 250 mg Aspirin (Ecotrin) 325 mg PO BID [facility] Last Admin: 05/13/18 08:22 Dose: 325 mg Bisacodyl (Dulcolax) 5 mg PO DAILY PRN PRN Reason: Constipation Cholecalciferol (Vitamin D3) 4,000 units PO DAILY [facility] Last Admin: 05/13/18 08:23 Dose: 4,000 units Citalopram Hydrobromide (Celexa) 20 mg PO BEDTIME [facility] Last Admin: 05/12/18 20:03 Dose: 20 mg Docusate Sodium (Colace) 100 mg PO BID [facility] Last Admin: 05/13/18 08:22 Dose: 100 mg Fenofibrate (Tricor) 145 mg PO DAILY [facility] Last Admin: 05/13/18 08:19 Dose: 145 mg Finasteride (Proscar) 5 mg PO DAILY [facility] Last Admin: 05/13/18 08:22 Dose: 5 mg Folic Acid (Folic Acid) 1 mg PO DAILY [facility] Last Admin: 05/13/18 08:22 Dose: 1 mg Furosemide (Lasix) 40 mg PO Q48H [facility] Last Admin: 05/11/18 18:12 Dose: 40 mg Hydromorphone HCl (Dilaudid) 0.2 mg IVPUSH Q2H PRN PRN Reason: Pain Levothyroxine Sodium (Levothyroxine) 112 mcg PO DAILY [facility] Last Admin: 05/13/18 08:23 Dose: 112 mcg Magnesium Sulfate (Pharmacy To Dose - Magnesium Replacement) 0 dose .XX ASDIRECTED PRN PRN Reason: RX TO DOSE MAG Metoprolol Tartrate (Lopressor) 25 mg PO BID [facility] Last Admin: 05/13/18 08:23 Dose: 25 mg Miscellaneous Information (Remove Patch) 0 ea TRDERM ONETIME ONE Stop: 05/14/18 10:46 Multivitamins (Thera) 1 each PO DAILY [facility] Last Admin: 05/13/18 08:22 Dose: 1 each Naloxone HCl (Narcan) 0.1 mg IVPUSH Q5M PRN PRN Reason: Oversedation Nitroglycerin (Nitrostat) 0.4 mg SL Q5M PRN PRN Reason: Chest Pain Ondansetron HCl (Zofran) 4 mg IVPUSH Q6H PRN PRN Reason: Nausea/Vomiting Pantoprazole Sodium (Protonix) 40 mg PO DAILY [facility] Last Admin: 05/13/18 08:24 Dose: 40 mg Potassium Chloride (Pharmacy To Dose - Potassium Replacement) 0 dose .XX ASDIRECTED PRN PRN Reason: RX TO DOSE K Pregabalin (Lyrica) 150 mg PO BID [facility] Last Admin: 05/13/18 08:20 Dose: 150 mg Senna (Senna) 8.6 mg PO BID PRN PRN Reason: Constipation Simvastatin (Zocor) 40 mg PO BEDTIME [facility] Last Admin: 05/12/18 20:03 Dose: 40 mg Tamsulosin HCl (Flomax) 0.4 mg PO BEDTIME [facility] Last Admin: 05/12/18 20:04 Dose: 0.4 mg Discontinued Medications Artificial Tears (Artificial Tears Ointment) Confirm Administered Dose 3.5 gm .ROUTE .STK-MED ONE Stop: 05/11/18 09:34 Bupivacaine HCl (Marcaine 0.25%) Confirm Administered Dose 30 ml .ROUTE .STK- MED ONE Stop: 05/11/18 09:13 Last Admin: 05/11/18 12:35 Dose: 20 ml Cefazolin Sodium (Ancef) Confirm Administered Dose 2 gm .ROUTE .STK-MED ONE Stop: 05/11/18 09:13 Last Admin: 05/11/18 12:30 Dose: 2 gm Cefazolin Sodium (Ancef) Confirm Administered Dose 2 gm .ROUTE .STK-MED ONE Stop: 05/11/18 09:24 Epinephrine HCl 0.3 mg/Cefuroxime Sodium 750 mg/Ketorolac Tromethamine 30 mg/ Sodium Chloride 28.7 ml 0 mg .XX ONETIME ONE Stop: 05/11/18 11:01 Last Admin: 05/11/18 18:38 Dose: Not Given Denosumab (Prolia) 60 mg .XX ASDIRECTED [facility] Dexamethasone (Dexamethasone) Confirm Administered Dose 8 mg .ROUTE .STK-MED ONE Stop: 05/11/18 11:44 Diphenhydramine HCl (Benadryl) 25 mg IVPUSH Q6H PRN PRN Reason: Pruritis Ephedrine Sulfate (Ephedrine In Ns) Confirm Administered Dose 25 mg .ROUTE .STK- MED ONE Stop: 05/11/18 12:06 Epinephrine HCl (Adrenalin) Confirm Administered Dose 1 mg .ROUTE .STK-MED ONE Stop: 05/11/18 10:49 Famotidine (Pepcid) Confirm Administered Dose 20 mg .ROUTE .STK-MED ONE Stop: 05/11/18 10:44 Fentanyl (Sublimaze) Confirm Administered Dose 100 mcg .ROUTE .STK-MED ONE Stop: 05/11/18 09:16 Fentanyl (Sublimaze) Confirm Administered Dose 100 mcg .ROUTE .STK-MED ONE Stop: 05/11/18 12:53 Fentanyl (Sublimaze) 50 mcg IVPUSH Q5M PRN PRN Reason: Pain Stop: 05/11/18 23:00 Last Admin: 05/11/18 13:55 Dose: 50 mcg Glycopyrrolate () Confirm Administered Dose 1 mg .ROUTE .STK-MED ONE Stop: 05/11/18 13:21 Hydromorphone HCl (Dilaudid) Confirm Administered Dose 0.5 mg .ROUTE .STK-MED ONE Stop: 05/11/18 11:18 Hydromorphone HCl (Dilaudid) 0.5 mg IVPUSH ASDIRECTED PRN PRN Reason: Severe Pain Stop: 05/11/18 23:00 Lactated Ringer's (Ringers, Lactated) 1,000 mls @ 125 mls/hr IV ASDIRECTED TAVON Stop: 05/11/18 23:00 Last Admin: 05/11/18 09:40 Dose: 125 mls/hr Cefazolin Sodium/Dextrose 2 gm (/ Premix) 50 mls @ 100 mls/hr IV Q8H TAVON Stop: 05/12/18 09:59 Last Admin: 05/12/18 09:43 Dose: 100 mls/hr Lactated Ringer's (Ringers, Lactated) Confirm Administered Dose 2,000 mls @ as directed .ROUTE .STK-MED ONE Stop: 05/11/18 09:17 Lidocaine HCl (Xylocaine-Mpf 1%) Confirm Administered Dose 4 mls @ as directed .ROUTE .STK-MED ONE Stop: 05/11/18 09:23 Sodium Chloride (Normal Saline) Confirm Administered Dose 100 mls @ as directed .ROUTE .STK-MED ONE Stop: 05/11/18 11:39 Lidocaine HCl (Xylocaine-Mpf 1%) Confirm Administered Dose 2 mls @ as directed .ROUTE .STK-MED ONE Stop: 05/11/18 11:57 Acetaminophen (Ofirmev) 100 mls @ 400 mls/hr IV ONETIME ONE Stop: 05/11/18 14:27 Last Admin: 05/11/18 14:29 Dose: 400 mls/hr Sodium Chloride (Normal Saline) 1,000 mls @ 25 mls/hr IV ASDIRECTED TAVON Stop: 05/15/18 14:41 Last Infusion: 05/12/18 07:35 Dose: 25 mls/hr Sodium Chloride (Normal Saline) 250 mls @ 999 mls/hr IV .BOLUS ONE Stop: 05/12/18 07:22 Last Admin: 05/12/18 07:20 Dose: Not Given Sodium Chloride (Normal Saline) 250 mls @ 999 mls/hr IV .BOLUS ONE Stop: 05/13/18 07:56 Last Admin: 05/13/18 08:18 Dose: 999 mls/hr Ketamine HCl (Ketalar) Confirm Administered Dose 500 mg .ROUTE .STK-MED ONE Stop: 05/11/18 09:18 Lidocaine/Sodium Bicarbonate (Buffered Lidocaine 1% In Ns 8.4%) 0.25 ml IDERM ONETIME PRN PRN Reason: Prior to IV Start Stop: 05/11/18 18:00 Last Admin: 05/11/18 09:40 Dose: 0.25 ml Magnesium Hydroxide (Milk Of Magnesia) 30 ml PO BID PRN PRN Reason: Constipation Metoprolol Tartrate (Lopressor) Confirm Administered Dose 5 mg .ROUTE .STK-MED ONE Stop: 05/11/18 14:06 Metoprolol Tartrate (Lopressor) Confirm Administered Dose 5 mg .ROUTE .STK-MED ONE Stop: 05/11/18 14:07 Midazolam HCl (Versed 1 Mg/Ml) Confirm Administered Dose 4 mg .ROUTE .STK-MED ONE Stop: 05/11/18 09:18 Naloxone HCl (Narcan) Confirm Administered Dose 0.4 mg .ROUTE .STK-MED ONE Stop: 05/11/18 13:57 Last Admin: 05/11/18 18:37 Dose: Not Given Naloxone HCl (Narcan) 0.4 mg IVPUSH ONETIME PRN PRN Reason: Respiratory Depression Last Admin: 05/11/18 13:57 Dose: 0.4 mg Neostigmine Methylsulfate (Neostigmine) Confirm Administered Dose 5 mg .ROUTE .STK-MED ONE Stop: 05/11/18 13:21 Non-Formulary Medication (Ubidecarenone [Co Q-10]) 1 tab PO DAILY [facility] Ondansetron HCl (Zofran) Confirm Administered Dose 4 mg .ROUTE .STK-MED ONE Stop: 05/11/18 09:17 Ondansetron HCl (Zofran) 4 mg IVPUSH ONETIME PRN PRN Reason: Nausea/Vomiting Phenylephrine HCl (Reese-Synephrine) Confirm Administered Dose 10 mg .ROUTE .STK- MED ONE Stop: 05/11/18 11:39 Phenylephrine HCl (Phenylephrine In Ns 100 Mcg/Ml) Confirm Administered Dose 1 mg .ROUTE .STK-MED ONE Stop: 05/11/18 12:06 Propofol (Diprivan 20 Ml) Confirm Administered Dose 400 mg .ROUTE .STK-MED ONE Stop: 05/11/18 09:17 Ropivacaine (Naropin 0.5%) Confirm Administered Dose 30 ml .ROUTE .STK-MED ONE Stop: 05/11/18 10:48 Scopolamine (Transderm-Scop) 1.5 mg TOP ONETIME ONE Stop: 05/11/18 10:46 Last Admin: 05/11/18 10:43 Dose: 1.5 mg Sodium Chloride (Saline Flush) 10 ml FLUSH ASDIRECTED PRN PRN Reason: Keep Vein Open Stop: 05/11/18 18:00 Tranexamic Acid (Cyklokapron) Confirm Administered Dose 1,000 mg .ROUTE .STK- MED ONE Stop: 05/11/18 09:13 Last Admin: 05/11/18 12:46 Dose: 1,000 mg Tranexamic Acid (Cyklokapron) Confirm Administered Dose 1,000 mg .ROUTE .STK- MED ONE Stop: 05/11/18 12:45 Vancomycin HCl (Vancomycin) Confirm Administered Dose 1 gm .ROUTE .STK-MED ONE Stop: 05/11/18 09:13 Last Admin: 05/11/18 12:39 Dose: 1 gm
[2018-05-13 12:41] VITALS: BP 128/96
[2018-05-13] MEDS: Furosemide 40 MG Tab PO SCH (12:49)
--- NOTE | 2018-05-21 14:03 | PCM.OPNOTE ---
- General Post-Op/Procedure Note Date of Surgery/Procedure: 05/11/18 Operative Procedure(s): right total knee arthroplasty Pre Op Diagnosis: right knee osteoarthrosis Post-Op Diagnosis: Same Anesthesia Technique: Local, MAC, Spinal Primary Surgeon: Rod Iniguez Anesthesia Provider: Melissa Brennan Tobacco Farmworker: Camila Romero Tobacco Farmworker: Hedy Friedman in mLs: 5 Complications: None Condition: Good Free Text/Narrative:: size 5 femur size 6 tibia 13mm [id number]
--- NOTE | 2018-05-22 06:57 | OR ---
DATE OF OPERATION: 05/11/2018 SURGEON: Rod Iniguez MD OPERATION PERFORMED: Right total knee arthroplasty. PREOPERATIVE DIAGNOSIS: Right knee osteoarthrosis. POSTOPERATIVE DIAGNOSIS: Right knee osteoarthrosis. ANESTHESIA: Local MAC with spinal. ANESTHESIA PROVIDER: Josi Aragon. CLAY TRANSPORTER: Camila Romero PA-C, and Hedy Friedman LPN. ESTIMATED BLOOD LOSS: 5 mL COMPLICATIONS: None. CONDITION: Stable. IMPLANTS: 1. Hale size 5 PS femur. 2. Hale size 6 cemented universal tibial base plate. 3. Paulette size 6 13 mm PS X3 polyethylene. 4. Hale size 35 x 10 mm cemented patella. DESCRIPTION OF PROCEDURE: The patient was identified in the preop holding area. Proper site was marked and identified by the surgeon. The patient was taken back to the operating theater. After adequate anesthesia, the patient's right lower extremity had a nonsterile tourniquet applied and it was then sterilely prepped and draped in the usual sterile fashion. OR timeout was performed. The patient received 2 g IV Ancef. At this time, right lower extremity was exsanguinated. Tourniquet was insufflated to 300 mmHg. Standard medial parapatellar incision was made. Medial parapatellar arthrotomy was created. Deep fibers of the MCL were raised and anterior fat pad was resected. At this time, attention was turned to the patella. Patella measured 24, it was resected to a 14 for a 35 x 10 mm patella. Drill holes were then drilled and found to be in adequate position. The drill was then drilled in the distal femur and the intramedullary distal femoral cutting guide was then placed. 8 mm was resected off the distal femur and was found to be an adequate resection. Sizing guide was placed. It was found to be a size 5 femur that was shown on the implant record at the beginning of this dictation. The drill holes were drilled for the epicondylar axis using Whitesides line and epicondyles as reference. At this time, the 4-in-1 cutting block was placed. An anterior posterior and anterior and posterior chamfer cuts were then completed. The correct size box cut was then placed and the box cut was completed and found to be an adequate resection. Attention was turned to the tibia. The posterior medial lateral retractors were placed. The extramedullary tibial guide was placed. It was placed in the old footprint of the ACL. It was aligned with the center of the ankle and 0 degrees of slope, 9 mm was then resected off the unaffected lateral side. There was found to be an acceptable reduction. At this time, posterior osteophytes were removed along with medial and lateral meniscus. A trial implant was placed with a correct sized tibia that was mentioned at the beginning of the dictation. A Hale size 6 13 mm PS X3 polyethylene was then placed. The patient's knee was brought through range of motion. The patella was tracking centrally and was stable to varus and valgus stress. Alignment was found to be roughly at 0 degrees. At this time, cement was mixed on the back table. The tibia was stamped and drilled in proper rotation. All cut surfaces were irrigated with pulse lavage irrigation with Ancef and then completely dried. Once this was completed, then the cement was ready. The universal tibial base plate was cemented in place. Next, the Hale size 5 PS femur cemented into place and the Hale size 6 13 mm PS X3 polyethylene was placed. The patient's knee was brought into full extension. Excess cement was removed. The patella was then cemented in place at this time. Tourniquet was deflated. One liter dilute Betadine solution was irrigated through the knee along with 3 L of pulse lavage irrigation with Ancef. Periarticular injection was then completed. The patient's knee was brought through a range of motion. Once the cement had time to set up and it was found to be stable to varus valgus stress, the patella was tracking centrally with full range of motion. At this time, a #2 barbed suture was used for closure of the medial parapatellar arthrotomy. Topical tranexamic acid was placed. 2-0 Vicryl was used subcutaneously, a running 3-0 Monocryl was used subcuticularly. The patient tolerated the procedure well and was sent to the PACU in stable condition. YVONNE /[id number]
== END 2018-05-13 14:00 | disposition other institution (70) | DRG 470 ==
LOC: JD.SDS 08:53 → JD.MS 08:56 → JD.ICU 14:23 → JD.SDS 20:15 → JD.ICU 20:16 → OBSVTOIN 22:09
PROVIDERS: ADMIT Orthopaedic Surgery; ATTEND Orthopaedic Surgery
PROC: 0SRC0J9 Replacement of Right Knee Joint with Synthetic Substitute, Cemented, Open Approach (ICD-10-PCS; principal; 2018-05-11)
PROC: 3E0T3BZ Introduction of Anesthetic Agent into Peripheral Nerves and Plexi, Percutaneous Approach (ICD-10-PCS; 2018-05-11)
PROC: 5A09357 Assistance with Respiratory Ventilation, Less than 24 Consecutive Hours, Continuous Positive Airway Pressure (ICD-10-PCS; 2018-05-11)
DX: M17.11 Unilateral primary osteoarthritis, right knee (principal); N25.81 Secondary hyperparathyroidism of renal origin; E89.0 Postprocedural hypothyroidism; G89.18 Other acute postprocedural pain; G62.9 Polyneuropathy, unspecified; N31.8 Other neuromuscular dysfunction of bladder; I12.9 Hypertensive chronic kidney disease with stage 1 through stage 4 chronic kidney disease, or unspecified chronic kidney disease; N18.3 Chronic kidney disease, stage 3 (moderate); E78.5 Hyperlipidemia, unspecified; G43.909 Migraine, unspecified, not intractable, without status migrainosus; M25.761 Osteophyte, right knee; K57.90 Diverticulosis of intestine, part unspecified, without perforation or abscess without bleeding; K22.70 Barrett's esophagus without dysplasia; F32.9 Major depressive disorder, single episode, unspecified; M54.9 Dorsalgia, unspecified; N40.1 Benign prostatic hyperplasia with lower urinary tract symptoms; R33.8 Other retention of urine; G89.29 Other chronic pain; M54.5 Low back pain; R09.02 Hypoxemia; L81.4 Other melanin hyperpigmentation; T42.75XA Adverse effect of unspecified antiepileptic and sedative-hypnotic drugs, initial encounter; G47.33 Obstructive sleep apnea (adult) (pediatric); I25.10 Atherosclerotic heart disease of native coronary artery without angina pectoris; Z79.2 Long term (current) use of antibiotics; Z79.82 Long term (current) use of aspirin; Z79.899 Other long term (current) drug therapy; Z88.6 Allergy status to analgesic agent; Z86.010 Personal history of colon polyps; Z88.1 Allergy status to other antibiotic agents; Z88.5 Allergy status to narcotic agent; Z95.1 Presence of aortocoronary bypass graft; Z87.442 Personal history of urinary calculi; Z98.1 Arthrodesis status; Z87.891 Personal history of nicotine dependence; Z88.8 Allergy status to other drugs, medicaments and biological substances; M10.9 Gout, unspecified; K21.9 Gastro-esophageal reflux disease without esophagitis; K29.70 Gastritis, unspecified, without bleeding; K52.9 Noninfective gastroenteritis and colitis, unspecified; Z87.440 Personal history of urinary (tract) infections; M85.80 Other specified disorders of bone density and structure, unspecified site; E55.9 Vitamin D deficiency, unspecified; E66.9 Obesity, unspecified; Z68.38 Body mass index [BMI] 38.0-38.9, adult
CPT/HCPCS: 27447; 64447; 73560; 87641 ×2; 94660; A9270 ×9; C1713; C1776 ×4; J0131; J0171; J0690 ×3; J1100; J1170; J2250; J2310; J2370 ×2; J2405; J2704; J2710; J2795; J3010 ×3; J3370; J3490 ×4; J7030; J7040; J7050; J7120 ×2; 01402; 36415; 64450; 80048; 80053; 83735; 85025; 85027; 94761; 94762; 97110-GP; 97116-GP; 97161-GP; 97165-GO; 97535-GO; J2001

== ENCOUNTER 2018-05-14 22:25 | Emergency (ER) | payer MEDICARE, OTHER ==
[2018-05-14 22:31] VITALS: BP 145/68
--- NOTE | 2018-05-14 22:49 | EDM.PDOC ---
ED HPI GENERAL MEDICAL PROBLEM - General Chief Complaint: Lower Extremity Injury/Pain Stated Complaint: [facility] Time Seen by Provider: 05/14/18 22:36 Source of Information: Reports: Patient, Old Records, RN Notes Reviewed History Limitations: Reports: No Limitations - History of Present Illness INITIAL COMMENTS - FREE TEXT/NARRATIVE: Medical records indicate that the patient underwent a right total knee arthroplasty per Dr. Iniguez on 05/11/2018. He was started on aspirin on 05/12/2018, and began PT/OT and WBAT prior to his discharge to [facility] yesterday, 2017. The patient is now sent from [facility] after a caregiver noticed pinkness around the patient's anterior knee wound. The patient has not had a fever, and denies increased pain beyond what he had previously been experiencing. The patient states that he was started on amoxicillin prior to surgery, for UTI , and states that he is still on the amoxicillin. Right Knee Pain Score (Numeric/FACES): 6 - Related Data Allergies Allergy/AdvReac Type Severity Reaction Status Date / Time iodine Allergy Rash Verified 05/14/18 22:31 latex Allergy Rash Verified 05/14/18 22:31 morphine Allergy Hives Verified 05/14/18 22:31 ciprofloxacin [From Cipro] AdvReac Nausea and Verified 05/14/18 22:31 Vomiting levofloxacin AdvReac Diarrhea Verified 05/14/18 22:31 oxycodone HCl [From Percocet] AdvReac Vomiting Verified 05/14/18 22:31 Home Meds: Home Meds Escitalopram [Lexapro] 10 mg PO BEDTIME 04/23/17 [History] Fenofibrate Nanocrystallized [Fenofibrate] 145 mg PO DAILY 04/23/17 [History] Furosemide [Lasix] 40 mg PO Q48H 04/23/17 [History] Metoprolol Tartrate [Lopressor] 25 mg PO BID 04/23/17 [History] Pantoprazole Sodium [Protonix] 40 mg PO DAILY 04/23/17 [History] Pregabalin [Lyrica] 150 mg PO BID 04/23/17 [History] Tamsulosin [Flomax] 0.4 mg PO BEDTIME 04/23/17 [History] Ubidecarenone [Co Q-10] 1 tab PO DAILY 04/23/17 [History] Cholecalciferol (Vitamin D3) [Vitamin D3] 4,000 units PO DAILY 05/08/18 [History ] Denosumab [Prolia] 60 mg SQ ASDIRECTED 05/08/18 [History] Folic Acid 1 mg PO DAILY 05/08/18 [History] Levothyroxine Sodium [Synthroid] 112 mcg PO DAILY 05/08/18 [History] Nitroglycerin [Nitrostat] 0.4 mg PO Q5M PRN 05/08/18 [History] Simvastatin [Zocor] 40 mg PO DAILY 05/08/18 [History] Amoxicillin 250 mg PO DAILY 05/11/18 [History] Finasteride [Proscar] 5 mg PO DAILY 05/11/18 [History] Multivitamin/Iron/Folic Acid [Centrum Adults Tablet] 1 tab PO DAILY 05/11/18 [ History] Acetaminophen/HYDROcodone [[place] 325-5 MG] 1 - 2 tab PO Q6H PRN #60 tablet 05/13 [Rx] Aspirin [Ecotrin] 325 mg PO BID #84 tab.ec 05/13/18 [Rx] Bisacodyl [Dulcolax] 5 mg PO DAILY PRN tablet 05/13/18 [Rx] Docusate Sodium [Colace] 100 mg PO BID cap 05/13/18 [Rx] Magnesium Rep Pharmacy to Dose [Pharmacy to Dose - Magnesium Replacement] 0 dose .XX ASDIRECTED PRN each 05/13/18 [Rx] Potassium Rep Pharmacy to Dose [Pharmacy to Dose - Potassium Replacement] 0 dose .XX ASDIRECTED PRN each 05/13/18 [Rx] Sennosides [Senna] 8.6 mg PO BID PRN tablet 05/13/18 [Rx] Past Medical History HEENT History: Reports: Impaired Vision Cardiovascular History: Reports: CAD, High Cholesterol, Hypertension Gastrointestinal History: Reports: Colon Polyp, Diverticulosis, Gastritis, GERD (with Adames esophagus), Hemorrhoids, Hiatal Hernia Genitourinary History: Reports: Acute Renal Failure, Chronic Renal Insuffiency, Renal Calculus, Retention, Urinary (hypotonic bladder) Musculoskeletal History: Reports: Fracture (left thumb), Osteoarthritis, Other ( See Below) (Scoliosis) Neurological History: Reports: Migraines, Neuropathy, Peripheral Psychiatric History: Reports: Depression Endocrine/Metabolic History: Reports: Hypothyroidism, Obesity/BMI 30+ - Past Surgical History HEENT Surgical History: Reports: Cataract Surgery, Tonsillectomy Cardiovascular Surgical History: Reports: Coronary Artery Bypass (x 5 vessel, 2005) GI Surgical History: Reports: Colonoscopy, EGD, Lysis of Adhesions Male Surgical History: Reports: Other (See Below) (Cystoscopy) Endocrine Surgical History: Reports: Thyroidectomy Neurological Surgical History: Reports: Spinal Fusion (L4-S1) Musculoskeletal Surgical History: Reports: Carpal Tunnel (bilateral), Knee Replacement (right, 05/11/2018) Social & Family History - Tobacco Use Smoking Status *Q: Never Smoker - Caffeine Use Caffeine Use: Reports: Coffee, Tea - Recreational Drug Use Recreational Drug Use: No - Living Situation & Occupation Living situation: Reports: ( Self-employed [employer].) Occupation: Employed Review of Systems - Review of Systems Review Of Systems: ROS reveals no pertinent complaints other than HPI. ED EXAM, GENERAL - Physical Exam Exam: See Below Exam Limited By: No Limitations General Appearance: Alert, WD/WN, No Apparent Distress Extremities: Other (Appropriate postoperative swelling and erythema to the left knee and left leg. Mild increased calor to palpation. The wound is clean and dressed. No suggestion of infection. Neurovascular status of the left lower extremity is intact.) Course - Vital Signs Last Recorded V/S: Last Vital Signs Temp 36.7 C 05/14/18 22:26 Pulse 86 05/14/18 22:26 Resp 18 05/14/18 22:26 BP 145/68 H 05/14/18 22:26 Pulse Ox 91 L 05/14/18 22:26 - Re-Assessments/Exams Free Text/Narrative Re-Assessment/Exam: 05/14/18 22:41 The patient's right knee shows postoperative swelling and edema, but I do not see any sign of an infection, and the patient is already on amoxicillin for a UTI, anyway. At this point, I would not make any changes to his current management. I'm recommending that he call the office of Dr. Iniguez in the morning , to see if they would like to see him prior to his current follow-up appointment. The patient is agreeable. Departure - Departure Time of Disposition: 22:43 Disposition: Home, Self-Care 01 Condition: Good Clinical Impression: Status post right knee replacement - Discharge Information *PRESCRIPTION DRUG MONITORING PROGRAM REVIEWED*: Not Applicable *COPY OF PRESCRIPTION DRUG MONITORING REPORT IN PATIENT TARI: Not Applicable Instructions: Total Knee Replacement, Care After, [id number] Referrals: Rod Iniguez MD [Physician] - Forms: ED Department Discharge Additional Instructions: You were seen in the emergency room for a concern of redness by your right knee replacement wound. On examination, no suggestion of infection was found. We recommend that you continue to take the medications you are currently prescribed, including aspirin and amoxicillin. We recommend that you contact the office of your Orthopedic Surgeon, Dr. Rod Iniguez, in the morning, to see if he would like to see you earlier than your currently scheduled follow-up appointment. If any other problems, please do not hesitate to return to the ER.
== END 2018-05-14 23:40 | disposition home or self-care (01) ==
LOC: JD.ED 22:25
DX: Z47.1 Aftercare following joint replacement surgery (principal); I25.10 Atherosclerotic heart disease of native coronary artery without angina pectoris; E78.00 Pure hypercholesterolemia, unspecified; I12.9 Hypertensive chronic kidney disease with stage 1 through stage 4 chronic kidney disease, or unspecified chronic kidney disease; N18.9 Chronic kidney disease, unspecified; E03.9 Hypothyroidism, unspecified; F32.9 Major depressive disorder, single episode, unspecified; Z88.1 Allergy status to other antibiotic agents; Z88.8 Allergy status to other drugs, medicaments and biological substances; Z79.899 Other long term (current) drug therapy; Z79.82 Long term (current) use of aspirin; Z91.040 Latex allergy status; Z96.651 Presence of right artificial knee joint
CPT/HCPCS: 99283; 99284

== ENCOUNTER 2021-11-19 12:42 | Emergency (ER) | payer MEDICARE, OTHER ==
[2021-11-19] MEDS ORDERED: Sodium Chloride 0.9% 10 ML Syringe FLUSH PRN (12:47)
[2021-11-19] MEDS ORDERED: Sodium Chloride 0.9% 1,000 ML IV STA (12:54)
[2021-11-19] MEDS ORDERED: Sodium Chloride 0.9% 500 ML IV STA (12:54)
[2021-11-19 14:23] LABS: CORONAVIRUS COVID-19 NAA NEGATIVE (NEGATIVE)
[2021-11-19] MEDS ORDERED: cefTRIAXone 2 GM in Sodium Chloride 0.9% 100 ML IV ONE (15:55)
[2021-11-19 17:10] VITALS: BP 125/88; PULSE 67
== END 2021-11-19 16:55 | disposition home or self-care (01) ==
LOC: JD.ED 12:42
DX: N39.0 Urinary tract infection, site not specified (principal); K52.9 Noninfective gastroenteritis and colitis, unspecified; I25.10 Atherosclerotic heart disease of native coronary artery without angina pectoris; E78.00 Pure hypercholesterolemia, unspecified; I12.9 Hypertensive chronic kidney disease with stage 1 through stage 4 chronic kidney disease, or unspecified chronic kidney disease; K21.9 Gastro-esophageal reflux disease without esophagitis; N18.9 Chronic kidney disease, unspecified; Z79.899 Other long term (current) drug therapy; Z79.82 Long term (current) use of aspirin; Z20.822 Contact with and (suspected) exposure to COVID-19
CPT/HCPCS: 0240U; 36415; 74176; 80053; 81001; 83630; 85025; 86140; 87045; 87046; 87086; 87088; 87186; 87493; 87899; 96365; 99284; J0696; J3490; J7030

== ENCOUNTER 2024-10-16 11:45 | Emergency (ER) | payer MEDICARE, OTHER ==
[2024-10-16 12:21] LABS: BASOPHILS ABSOLUTE AUTO 0.1 K/mm3 (0.0-0.2); BASOPHILS PERCENT AUTO 1.1 % (0.0-1.0); EOSINOPHILS ABSOLUTE AUTO 0.3 K/mm3 (0.0-0.4); EOSINOPHILS PERCENT AUTO 3.6 % (0.0-6.0); HEMATOCRIT 31.6 % (42.0-52.0); HEMOGLOBIN 9.5 gm/dl (14.0-18.0); IMMATURE GRAN ABSOLUTE AUTO 0.02 K/mm3 (0.00-0.05); IMMATURE GRAN PERCENT AUTO 0.3 % (0.0-0.4); LYMPHOCYTES ABSOLUTE AUTO 1.9 K/mm3 (1.0-4.8); MEAN CORPUSCULAR HGB CONC 30.1 g/dl (32.0-36.0); MEAN CORPUSCULAR VOLUME 73.3 fl (83.0-99.0); MEAN PLATELET VOLUME 9.8 fl (9.4-12.4); MONOCYTES ABSOLUTE AUTO 0.8 K/mm3 (0.0-0.8); MONOCYTES PERCENT AUTO 11.2 % (0.0-8.0); NEUTROPHILS PERCENT AUTO 56.8 % (41.0-71.0); PLATELET COUNT,PLT 127 K/mm3 (150-400); RED BLOOD CELL COUNT 4.31 M/mm3 (4.52-5.90); WHITE BLOOD CELL COUNT,WBC 7.03 K/mm3 (3.9-11.3)
[2024-10-16] MEDS: Furosemide 40 MG/4 ML VIAL IVPUSH ONE (12:25)
[2024-10-16 12:52] LABS: ALBUMIN 3.9 g/dl (3.4-5.0); ANION GAP 14.1 (5-15); BILIRUBIN TOTAL 0.5 mg/dL (0.2-1.0); BUN/CREATININE RATIO 16.1 (14-18); CALCIUM 10.2 mg/dL (8.5-10.1); CREATININE 1.8 mg/dL (0.7-1.3); EST CRCL DRUG DOSING (CG) 29.07 mL/min; MAGNESIUM 2.3 mg/dL (1.8-2.4); POTASSIUM,K 4.1 mEq/L (3.5-5.1)
[2024-10-16 15:11] VITALS: BP 124/63; PULSE 66
== END 2024-10-16 14:25 | disposition home or self-care (01) ==
LOC: JD.ED 11:45
DX: I13.0 Hypertensive heart and chronic kidney disease with heart failure and stage 1 through stage 4 chronic kidney disease, or unspecified chronic kidney disease (principal); I50.9 Heart failure, unspecified; N18.30 Chronic kidney disease, stage 3 unspecified; D64.9 Anemia, unspecified; E78.00 Pure hypercholesterolemia, unspecified; E03.9 Hypothyroidism, unspecified; D69.6 Thrombocytopenia, unspecified; I25.10 Atherosclerotic heart disease of native coronary artery without angina pectoris; Z91.040 Latex allergy status; Z91.041 Radiographic dye allergy status; Z88.1 Allergy status to other antibiotic agents; Z88.5 Allergy status to narcotic agent; Z88.8 Allergy status to other drugs, medicaments and biological substances; Z79.890 Hormone replacement therapy; Z79.82 Long term (current) use of aspirin
CPT/HCPCS: 36415; 71045; 80053; 83735; 83880; 84484; 85025; 87428; 93005; 96374; 99285; J1940; 93010; 99284

== ENCOUNTER 2025-01-10 14:52 | Emergency (ER) | payer MEDICARE, OTHER ==
[2025-01-10 15:34] LABS: BASOPHILS ABSOLUTE AUTO 0.1 K/mm3 (0.0-0.2); BASOPHILS PERCENT AUTO 0.9 % (0.0-1.0); EOSINOPHILS ABSOLUTE AUTO 0.2 K/mm3 (0.0-0.4); EOSINOPHILS PERCENT AUTO 3.9 % (0.0-6.0); HEMATOCRIT 44.9 % (42.0-52.0); HEMOGLOBIN 13.9 gm/dl (14.0-18.0); IMMATURE GRAN ABSOLUTE AUTO 0.01 K/mm3 (0.00-0.05); IMMATURE GRAN PERCENT AUTO 0.2 % (0.0-0.4); LYMPHOCYTES ABSOLUTE AUTO 1.4 K/mm3 (1.0-4.8); LYMPHOCYTES PERCENT AUTO 26.3 % (24.0-44.0); MEAN CORPUSCULAR HEMOGLOBIN 27.3 pg (28.0-32.0); MEAN PLATELET VOLUME 10.2 fl (9.4-12.4); MONOCYTES ABSOLUTE AUTO 0.6 K/mm3 (0.0-0.8); MONOCYTES PERCENT AUTO 11.5 % (0.0-8.0); NEUTROPHILS ABSOLUTE AUTO 3.1 K/mm3 (1.8-7.7); NEUTROPHILS PERCENT AUTO 57.2 % (41.0-71.0); PLATELET COUNT,PLT 106 K/mm3 (150-400); WHITE BLOOD CELL COUNT,WBC 5.39 K/mm3 (3.9-11.3)
[2025-01-10] MEDS: Furosemide 40 MG/4 ML VIAL IVPUSH ONE (15:43)
[2025-01-10 15:55] LABS: A/G RATIO 0.9 (1-2); ALBUMIN 3.8 g/dl (3.4-5.0); ANION GAP 11.9 (5-15); BILIRUBIN TOTAL 0.4 mg/dL (0.2-1.0); BUN/CREATININE RATIO 17.5 (14-18); CALCIUM 10.1 mg/dL (8.5-10.1); CREATININE 1.6 mg/dL (0.7-1.3); EST CRCL DRUG DOSING (CG) 32.71 mL/min; MAGNESIUM 2.6 mg/dL (1.8-2.4); POTASSIUM,K 3.9 mEq/L (3.5-5.1); PROTEIN TOTAL,TP 8.2 g/dl (6.4-8.2)
[2025-01-10 17:22] VITALS: BP 127/59; PULSE 64
== END 2025-01-10 17:05 | disposition home or self-care (01) ==
LOC: JD.ED 14:52
DX: I13.0 Hypertensive heart and chronic kidney disease with heart failure and stage 1 through stage 4 chronic kidney disease, or unspecified chronic kidney disease (principal); I50.9 Heart failure, unspecified; N18.9 Chronic kidney disease, unspecified; E78.00 Pure hypercholesterolemia, unspecified; E66.9 Obesity, unspecified; E03.9 Hypothyroidism, unspecified; Z88.1 Allergy status to other antibiotic agents; Z88.5 Allergy status to narcotic agent; Z91.041 Radiographic dye allergy status; Z91.040 Latex allergy status; Z79.82 Long term (current) use of aspirin; Z79.890 Hormone replacement therapy; Z79.899 Other long term (current) drug therapy; Z86.16 Personal history of COVID-19; Z68.38 Body mass index [BMI] 38.0-38.9, adult
CPT/HCPCS: 36415; 71045; 80053; 83735; 83880; 84484; 85025; 93005; 96374; 99285; J1938; 93010; 99283

== ENCOUNTER 2025-03-27 13:48 | Inpatient (IN) | payer MEDICARE, OTHER ==
[2025-03-27] MEDS ORDERED: Sodium Chloride 0.9% 10 ML Syringe FLUSH PRN (14:32)
[2025-03-27 14:55] LABS: BASOPHILS ABSOLUTE AUTO 0.1 K/mm3 (0.0-0.2); BASOPHILS PERCENT AUTO 1.3 % (0.0-1.0); EOSINOPHILS ABSOLUTE AUTO 0.4 K/mm3 (0.0-0.4); EOSINOPHILS PERCENT AUTO 6.7 % (0.0-6.0); IMMATURE GRAN ABSOLUTE AUTO 0.03 K/mm3 (0.00-0.05); IMMATURE GRAN PERCENT AUTO 0.5 % (0.0-0.4); LYMPHOCYTES ABSOLUTE AUTO 1.5 K/mm3 (1.0-4.8); LYMPHOCYTES PERCENT AUTO 23.8 % (24.0-44.0); MEAN PLATELET VOLUME 10.3 fl (9.4-12.4); MONOCYTES ABSOLUTE AUTO 0.7 K/mm3 (0.0-0.8); MONOCYTES PERCENT AUTO 10.4 % (0.0-8.0); NEUTROPHILS ABSOLUTE AUTO 3.6 K/mm3 (1.8-7.7); NEUTROPHILS PERCENT AUTO 57.3 % (41.0-71.0); NRBC ABSOLUTE 0.00 (0.00-0.02); NRBC PERCENT 0.0 % (0.0-0.2); PLATELET COUNT,PLT 117 K/mm3 (150-400); RED BLOOD CELL COUNT 3.33 M/mm3 (4.52-5.90); WHITE BLOOD CELL COUNT,WBC 6.26 K/mm3 (3.9-11.3)
[2025-03-27 15:18] LABS: A/G RATIO 1.0 (1-2); ALANINE AMINOTRANSFERASE,ALT 40.0 U/L (16-63); ASPARTATE AMNIOTRANSFERASE,AST 54.0 U/L (15-37); BILIRUBIN TOTAL 0.5 mg/dL (0.2-1.0); BLOOD UREA NITROGEN,BUN 41.0 mg/dL (7-18); CARBON DIOXIDE,CO2 33.0 mEq/L (21-32); CHLORIDE,CL 98.0 mEq/L (98-107); CREATININE 1.6 mg/dL (0.7-1.3); EST CRCL DRUG DOSING (CG) 32.71 mL/min; ESTIMATED GFR 42.0 mL/min (>60); POTASSIUM,K 3.7 mEq/L (3.5-5.1); PROTEIN TOTAL,TP 7.2 g/dl (6.4-8.2); SODIUM,NA 137.0 mEq/L (136-145); TROPONIN I HIGH SENSITIVITY 9.0 pg/mL (<=76)
[2025-03-27 15:21] LABS: GLUCOSE RANDOM 157.0 mg/dL (70-99)
[2025-03-27] MEDS ORDERED: LORazepam 2 MG/ML SDV IV PRN (18:22)
[2025-03-27 18:48] LABS: INR 1.12
[2025-03-27 20:08] LABS: MEAN PLATELET VOLUME 10.3 fl (9.4-12.4); NRBC ABSOLUTE 0.00 (0.00-0.02); NRBC PERCENT 0.0 % (0.0-0.2); PLATELET COUNT,PLT 105 K/mm3 (150-400); RED BLOOD CELL COUNT 3.02 M/mm3 (4.52-5.90); WHITE BLOOD CELL COUNT,WBC 4.75 K/mm3 (3.9-11.3)
[2025-03-28 05:59] LABS: BASOPHILS ABSOLUTE AUTO 0.1 K/mm3 (0.0-0.2); BASOPHILS PERCENT AUTO 1.3 % (0.0-1.0); EOSINOPHILS ABSOLUTE AUTO 0.2 K/mm3 (0.0-0.4); EOSINOPHILS PERCENT AUTO 4.4 % (0.0-6.0); IMMATURE GRAN ABSOLUTE AUTO 0.01 K/mm3 (0.00-0.05); IMMATURE GRAN PERCENT AUTO 0.2 % (0.0-0.4); LYMPHOCYTES ABSOLUTE AUTO 1.3 K/mm3 (1.0-4.8); LYMPHOCYTES PERCENT AUTO 26.8 % (24.0-44.0); MEAN PLATELET VOLUME 10.5 fl (9.4-12.4); MONOCYTES ABSOLUTE AUTO 0.5 K/mm3 (0.0-0.8); MONOCYTES PERCENT AUTO 9.9 % (0.0-8.0); NEUTROPHILS ABSOLUTE AUTO 2.7 K/mm3 (1.8-7.7); NEUTROPHILS PERCENT AUTO 57.4 % (41.0-71.0); NRBC ABSOLUTE 0.00 (0.00-0.02); NRBC PERCENT 0.0 % (0.0-0.2); PLATELET COUNT,PLT 103 K/mm3 (150-400); RED BLOOD CELL COUNT 3.09 M/mm3 (4.52-5.90); WHITE BLOOD CELL COUNT,WBC 4.74 K/mm3 (3.9-11.3)
[2025-03-28 06:56] LABS: A/G RATIO 0.9 (1-2); ALANINE AMINOTRANSFERASE,ALT 31.0 U/L (16-63); ASPARTATE AMNIOTRANSFERASE,AST 43.0 U/L (15-37); BILIRUBIN TOTAL 0.7 mg/dL (0.2-1.0); BLOOD UREA NITROGEN,BUN 36.0 mg/dL (7-18); CARBON DIOXIDE,CO2 32.0 mEq/L (21-32); CHLORIDE,CL 100.0 mEq/L (98-107); CREATININE 1.5 mg/dL (0.7-1.3); EST CRCL DRUG DOSING (CG) 34.89 mL/min; ESTIMATED GFR 46.0 mL/min (>60); GLUCOSE RANDOM 144.0 mg/dL (70-99); PHOSPHORUS 3.6 mg/dL (2.6-4.7); POTASSIUM,K 3.9 mEq/L (3.5-5.1); PROTEIN TOTAL,TP 6.4 g/dl (6.4-8.2); SODIUM,NA 136.0 mEq/L (136-145); TSH 3.925 uIU/mL (0.358-3.74)
[2025-03-28 07:30] LABS: T4 FREE 0.79 ng/dL (0.76-1.46)
[2025-03-28 15:15] VITALS: BP 91/62; PULSE 52
== END 2025-03-28 15:47 | disposition home or self-care (01) | DRG 378 ==
LOC: JD.ED 13:48 → JD.MS 17:09
PROVIDERS: ADMIT Student in an Organized Health Care Education/Training Program; ATTEND Student in an Organized Health Care Education/Training Program
PROC: 5A09357 Assistance with Respiratory Ventilation, Less than 24 Consecutive Hours, Continuous Positive Airway Pressure (ICD-10-PCS; principal; 2025-03-28)
DX: K29.71 Gastritis, unspecified, with bleeding (principal); D62 Acute posthemorrhagic anemia; I13.0 Hypertensive heart and chronic kidney disease with heart failure and stage 1 through stage 4 chronic kidney disease, or unspecified chronic kidney disease; N25.81 Secondary hyperparathyroidism of renal origin; K44.9 Diaphragmatic hernia without obstruction or gangrene; I50.9 Heart failure, unspecified; H54.7 Unspecified visual loss; I25.10 Atherosclerotic heart disease of native coronary artery without angina pectoris; K92.2 Gastrointestinal hemorrhage, unspecified; K21.9 Gastro-esophageal reflux disease without esophagitis; G43.909 Migraine, unspecified, not intractable, without status migrainosus; G62.9 Polyneuropathy, unspecified; E89.0 Postprocedural hypothyroidism; F32.A Depression, unspecified; E66.9 Obesity, unspecified; G47.33 Obstructive sleep apnea (adult) (pediatric); R94.31 Abnormal electrocardiogram [ECG] [EKG]; I45.10 Unspecified right bundle-branch block; N40.0 Benign prostatic hyperplasia without lower urinary tract symptoms; Z96.651 Presence of right artificial knee joint; N18.31 Chronic kidney disease, stage 3a; M15.0 Primary generalized (osteo)arthritis; Z68.37 Body mass index [BMI] 37.0-37.9, adult; I12.9 Hypertensive chronic kidney disease with stage 1 through stage 4 chronic kidney disease, or unspecified chronic kidney disease; Z98.49 Cataract extraction status, unspecified eye; Z90.89 Acquired absence of other organs; Z95.1 Presence of aortocoronary bypass graft; Z86.0100 Personal history of colon polyps, unspecified; Z98.1 Arthrodesis status; E03.9 Hypothyroidism, unspecified; Z91.040 Latex allergy status; Z91.041 Radiographic dye allergy status; Z88.1 Allergy status to other antibiotic agents; N18.30 Chronic kidney disease, stage 3 unspecified; E78.00 Pure hypercholesterolemia, unspecified; Z88.5 Allergy status to narcotic agent; Z88.8 Allergy status to other drugs, medicaments and biological substances; Z79.890 Hormone replacement therapy; Z79.899 Other long term (current) drug therapy; Z86.16 Personal history of COVID-19
CPT/HCPCS: 36415; 71046; 80053; 82272; 83880; 84484; 85025; 85610; 86140; 93005; J2470; J7030; 83735; 84100; 84439; 84443; 85027; 93010; 94660; 94761; 96361; 96374; 97116-GP; 97162-GP; 97530-GP; 99285; 99285-25; A9270-GY